=== PATIENT | female | born 1960 | race American Indian/Alaskan Native ===

== ENCOUNTER 2021-10-07 13:20 | Emergency (ER) | payer MEDICARE ==
[2021-10-07 13:27] VITALS: BP 134/73
--- NOTE | 2021-10-07 15:03 | Emergency Department Report ---
ED Psych HPI - General Chief Complaint: Psych Stated Complaint: OUT OF MEDS Time Seen by Provider: 10/07/21 14:03 Source: patient, EMS Mode of arrival: Ambulatory - History of Present Illness Initial Comments: 61-year-old female with a history of psychiatric disease (unable to tell us what her diagnosis is here) presents to the emergency department after being found walking in and out of traffic, today. Patient reports that someone was chasing her, and that is why she was in traffic. Patient also reports that she has been off of her injectable antipsychotic medications for several months, but has not been taking the pills that she was prescribed because "my daughter has it". Patient denies SI, HI, and hallucinations. Patient does appear mildly paranoid and not fully aware of her psychiatric disorder. Unknown alleviating or aggravating factors. - Related Data Allergies Allergy/AdvReac Type Severity Reaction Status Date / Time No Known Allergies Allergy Verified 10/07/21 13:27 ED Review of Systems ROS: Stated complaint: OUT OF MEDS Other details as noted in HPI Comment: Unobtainable due to pts medical conditions (Psychiatric disease and possible mental disability) Constitutional: denies: no symptoms reported, chills, fever Eyes: denies: eye pain, eye discharge, vision change ENT: denies: ear pain, throat pain Respiratory: denies: no symptoms reported, cough, shortness of breath, wheezing Cardiovascular: denies: chest pain, palpitations Endocrine: no symptoms reported Gastrointestinal: denies: abdominal pain, nausea, diarrhea Genitourinary: denies: urgency, dysuria, discharge Musculoskeletal: denies: back pain, joint swelling, arthralgia Skin: denies: rash, lesions Neurological: denies: headache, weakness, paresthesias Psychiatric: other (paranoia and out of medications). denies: anxiety, depression Hematological/Lymphatic: denies: easy bleeding, easy bruising ED Past Medical Hx - Past Medical History Hx Psychiatric Treatment: Yes ED Physical Exam - General Limitations: No Limitations General appearance: alert, in no apparent distress, obese - Head Head exam: Present: atraumatic, normocephalic - Eye Eye exam: Present: normal appearance - ENT ENT exam: Present: mucous membranes moist - Neck Neck exam: Present: normal inspection - Respiratory Respiratory exam: Present: normal lung sounds bilaterally, other (coughing). Absent: respiratory distress, wheezes - Cardiovascular Cardiovascular Exam: Present: regular rate, normal rhythm. Absent: systolic murmur, diastolic murmur, rubs, gallop - GI/Abdominal GI/Abdominal exam: Present: soft, normal bowel sounds - Extremities Exam Extremities exam: Present: normal inspection - Back Exam Back exam: Present: normal inspection - Neurological Exam Neurological exam: Present: alert, oriented X3 (Oriented to person, place, and time but not to situation), CN II-XII intact, normal gait, motor sensory deficit - Psychiatric Psychiatric exam: Present: normal mood, other (Mildly paranoid). Absent: depressed, agitated, anxious, homicidal ideation - Skin Skin exam: Present: warm, dry, intact, normal color. Absent: rash ED Course Vital Signs 10/07/21 13:25 Temperature 98.9 F Pulse Rate 93 H Respiratory 18 Rate Blood Pressure 134/73 [Left] O2 Sat by Pulse 99 Oximetry ED Medical Decision Making - Differential Diagnosis Acute psychosis, suicide attempts, malingering, mental disability Critical care attestation.: If time is entered above; I have spent that time in minutes in the direct care of this critically ill patient, excluding procedure time. ED Disposition Condition: Stable
[2021-10-07 16:04] LABS: Amphetamine Screen,Urine Negative; Benzodiazepines Screen,Urine Negative; Cannabinoid Screen,Urine Negative; Methadone Screen,Urine Negative; Opiate Screen,Urine Negative
[2021-10-07 16:07] LABS: Basophils % (Auto) 0.5 % (0.0-1.8); Eosinophils # (Auto) 0.2 K/mm3 (0.0-0.4); Eosinophils % (Auto) 3.2 % (0.0-4.3); Hematocrit 35.8 % (30.3-42.9); Hemoglobin 11.6 gm/dl (10.1-14.3); Lymphocytes # (Auto) 1.8 K/mm3 (1.2-5.4); Lymphocytes % (Auto) 28.8 % (13.4-35.0); Mean Corpuscular HGB Conc 32 % (30-34); Mean Corpuscular Volume 92 fl (79-97); Monocytes # (Auto) 0.6 K/mm3 (0.0-0.8); Monocytes % (Auto) 9.4 % (0.0-7.3); Platelet Count 246 K/mm3 (140-440); Red Blood Count 3.91 M/mm3 (3.65-5.03); Red Cell Distribution Width 13.6 % (13.2-15.2)
[2021-10-07 16:12] LABS: Bilirubin,Urine 1+ (Negative); Color,Urine Yellow (Yellow)
[2021-10-07 16:13] LABS: Blood,Urine Negative (Negative)
[2021-10-07 16:16] LABS: Cocaine Screen,Urine Positive
[2021-10-07 16:19] LABS: BUN/Creatinine Ratio 12; Blood Urea Nitrogen 13 mg/dL (7-17); Calcium 9.3 mg/dL (8.4-10.2); Hemolysis Index 4
[2021-10-07 17:08] LABS: RBC,Urine < 1.0 /HPF (0.0-6.0); WBC,Urine < 1.0 /HPF (0.0-6.0)
== END 2021-10-07 18:39 | disposition home or self-care (01) ==
LOC: ED 13:20
DX: F23 Brief psychotic disorder (principal); R45.851 Suicidal ideations; Z20.822 Contact with and (suspected) exposure to COVID-19; Z76.5 Malingerer [conscious simulation]; F81.9 Developmental disorder of scholastic skills, unspecified; Z79.899 Other long term (current) drug therapy
CPT/HCPCS: 80048; 80307; 81001; 85025; 99283; U0003; 80320; G0480

== ENCOUNTER 2021-10-07 17:09 | Inpatient (IN) | payer MEDICARE ==
--- NOTE | 2021-10-08 08:01 | History and Physical Report ---
GP History & Physical - History of Present Illness Date of admission: 10/07/21 Date of Examination: 10/08/21 Reason for Admission: Danger to self, Danger to others, Failure of Outpatient Treatment History of Present Illness: The patient is a 61 year old female with history of schizophrenia who is admitted for stabilization. Per note, patient was found going in and out of traffic. The patient was seen today. She is calm and oriented to self. She reports that " they took me off the street, they said they're going to take me to the doctor, I have a big open wound down there I don't know where I got it from." The patient presents with disorganized thoughts. Per note, the patient was on Abilify Maintena injection; she is unable to state when she last took med. The patient is followed by [facility]. She tested positive for Cocaine. PAST PSYCHIATRIC HISTORY: PAST MEDICAL HISTORY: Family Psychiatric History None reported or documented SOCIAL HISTORY REVIEW OF SYSTEMS ROS: Unable to assess MENTAL STATUS General Appearance and Behavior: age appropriate, good eye contact, cooperative, and calm Cooperation: Cooperative Psychomotor Behavior: within normal limits Mood: confused Affect and affective range: Congruent with stated mood Thought Process: circumstantial Thought Content: Confused Speech: Normal volume and Regular rate and rhythm Suicidal Ideation:unable to assess Homicidal Ideation: Denies HI Hallucinations:unable to assess Delusions: None elicited Impulse Control: Limited Insight and Judgment: Limited Memory: Limited Attention: distracted Orientation: alert and oriented Diagnoses: Schizophrenia Disorder Treatment Plan Start Abilify 15mg po daily- Recommend Abilify maintena Inj. Start Trazodone 50mg po QHS Patient will be admitted for inpatient psychiatric evaluation, medication adjustment and close monitoring The patient's behavior, mood, sleep and appetite will be closely monitored. Patient will be enrolled in individual and group therapeutic sessions and encouraged to attend. Patient will be provided with a safe and structured environment. Patient's physical health needs will be addressed by the Hospitalist. Hospitalist Consulted Labs including CBC, CMP, Lipid profile and Hemoglobin A1C ordered Social Assessment will be completed and the [facility] Magistrate will work with patient and family to ensure a suitable and safe disposition Medication adjustment will be made as clinically indicated Usual Wellness Religious/Preservation: - Start Trazodone 50 mg po QHS PRN - Start [place]-3 for brain health, reduce impulsivity, and as adjunctive treatment for mood disorder, continue upon discharge given overall benefits. The patient agreed on the treatment plan, understood the risk, benefit, alternative treatment, potential consequence of no treatment, and gave informed consent. Legal Status: Involuntary Reaction to Hospitalization: Accepting Medications and Allergies Allergies Allergy/AdvReac Type Severity Reaction Status Date / Time No Known Allergies Allergy Verified 10/07/21 13:27 Home Medications Medication Instructions Recorded Confirmed Last Taken Type Unobtainable 10/08/21 10/08/21 Unknown History Results - Results Labs/Vitals: Laboratory Last Values POC Glucose 117 mg/dL (70-105) H 10/07/21 23:22 Last Vital Signs Temp 98.9 F 10/07/21 23:20 Pulse 70 10/07/21 23:20 Resp 18 10/07/21 23:20 BP 120/54 10/07/21 23:20 Pulse Ox 98 10/07/21 23:20 Physical Examination - Constitutional Vitals: Vital Signs Temp Pulse Resp BP Pulse Ox 98.9 F 70 18 120/54 98 10/07/21 23:20 10/07/21 23:20 10/07/21 23:20 10/07/21 23:20 10/07/21 23:20 Temperature -Last 24 Hours Temperature 98.9 F Mental Status Exam - Vital signs Last Vital Signs Temp 98.9 F 10/07/21 23:20 Pulse 70 10/07/21 23:20 Resp 18 10/07/21 23:20 BP 120/54 10/07/21 23:20 Pulse Ox 98 10/07/21 23:20 Physician Certification - Certification Statement Physician Certification Statement: This is an acknowledgement statement that PELON PALACIO is a 61 year old F who requires inpatient psychiatric admission for treatment which could reasonably be expected to improve the patient's condition for Estimated period of time patient will need to remain in the hospital: [ ] Plan for post-hospital care: [ ]
[2021-10-08] MEDS: ARIPiprazole 15 MG TAB PO SCH (10:22)
--- NOTE | 2021-10-08 11:29 | Consultation ---
History of Present Illness - Reason for Consult Consult date: 10/08/21 Medical consult/medical management Requesting physician: RAFI TRIPATHI - History of Present Illness 61-year-old female patient with significant past medical history of major depression was found walking on the street in the traffic with her hallucinations of someone chasing her. Patient ran out of antipsychotic medications and was not on them for many months. Patient was admitted to [facility] with a history of danger to self, danger to others, and failure of outpatient treatment patient has history of schizophrenia noncompliant with medications. Hospitalist service was requested for medical consult Patient does not have any history of medical disease per records and patient denies diabetes, hypertension or coronary artery disease. Time of my evaluation patient is loud confused at times sometimes responds appropriately. Patient has history of tobacco use per medical records. Patient unable to give the history, family not available Limited history information obtained from the medical records Patient reports that someone is chasing him, No history suggestive of diabetes mellitus, hypertension, coronary artery disease No history of nausea vomiting abdominal pain no history of paralysis, weakness and Past History Past Medical History: other (Schizophrenia). denies: CAD, hypertension, hyperlipidemia Past Surgical History: No surgical history Social history: smoking. denies: alcohol abuse, prescription drug abuse Family history: no significant family history Medications and Allergies Allergies Allergy/AdvReac Type Severity Reaction Status Date / Time No Known Allergies Allergy Verified 10/07/21 13:27 Home Medications Medication Instructions Recorded Confirmed Last Taken Type Unobtainable 10/08/21 10/08/21 Unknown History Active Meds: Active Medications Aripiprazole (Aripiprazole 15 Mg Tab) 15 mg PO QDAY [facility] Last Admin: 10/08/21 10:22 Dose: 15 mg Nystatin (Nystatin Cream 15 Gm Tube) 1 applic TP TID ROBERTO Trazodone HCl (Trazodone 50 Mg Tab) 50 mg PO QHS [facility] Review of Systems ROS unobtainable: due to mental status Exam - Constitutional Vitals: Temp Pulse Resp BP Pulse Ox 98.9 F 70 18 120/54 98 10/07/21 23:20 10/07/21 23:20 10/07/21 23:20 10/07/21 23:20 10/07/21 23:20 General appearance: Present: no acute distress, well-nourished, obese - EENT Eyes: Present: PERRL, EOM intact - Neck Neck: Present: supple, normal ROM - Respiratory Respiratory effort: normal Respiratory: bilateral: diminished, negative: rales, rhonchi, wheezing - Cardiovascular Rhythm: regular Heart Sounds: Present: S1 & S2 - Extremities Extremities: no ischemia, No edema - Abdominal General gastrointestinal: Present: soft, non-tender, non-distended - Integumentary Integumentary: Present: clear, warm - Musculoskeletal Musculoskeletal: strength equal bilaterally - Psychiatric Psychiatric: agitated, other - Neurologic Neurologic: moves all extremities Results - Labs CBC & Chem 7: 10/07/21 13:40 10/07/21 13:40 Labs: Abnormal lab results 10/07/21 Range/Units 23:22 POC Glucose 117 H (70-105) mg/dL Assessment and Plan --Schizophrenia; management per psych --Ongoing tobacco use; Nicotine patch, smoking cessation counseling when patient is able to understand Supportive care --Cocaine abuse; strongly advised to quit We will also advised the family the importance of compliance with medications diet and follow-up visits and she is more receptive --DVT prophylaxis; SCDs while resting Ambulate as tolerated --Obesity; BMI 31.1 Advised diet modification, exercise as tolerated and weight reduction --Full CODE STATUS Closely monitor the patient and adjust management as needed Plan of care reviewed with the patient and her nurse Thank you for this consultation We will follow the patient along with you
[2021-10-08 13:45] LABS: Basophils % (Auto) 0.8 % (0.0-1.8); Eosinophils # (Auto) 0.1 K/mm3 (0.0-0.4); Eosinophils % (Auto) 2.3 % (0.0-4.3); Hematocrit 34.9 % (30.3-42.9); Hemoglobin 11.5 gm/dl (10.1-14.3); Lymphocytes # (Auto) 1.7 K/mm3 (1.2-5.4); Lymphocytes % (Auto) 31.4 % (13.4-35.0); Mean Corpuscular HGB Conc 33 % (30-34); Mean Corpuscular Volume 92 fl (79-97); Monocytes # (Auto) 0.4 K/mm3 (0.0-0.8); Monocytes % (Auto) 6.6 % (0.0-7.3); Platelet Count 240 K/mm3 (140-440); Red Blood Count 3.78 M/mm3 (3.65-5.03); Red Cell Distribution Width 13.6 % (13.2-15.2)
[2021-10-08 14:10] LABS: Alanine Aminotransferase 17 units/L (7-56); Albumin 3.4 g/dL (3.9-5); BUN/Creatinine Ratio 12; Blood Urea Nitrogen 11 mg/dL (7-17); Chol/HDL Ratio 4.74 %; HDL Cholesterol 31 mg/dL (40-59); Hemolysis Index 4; LDL Cholesterol,Direct 94 mg/dL (50-130)
[2021-10-08] MEDS: NYSTATIN CREAM 15 GM TUBE TP SCH ×2 (14:52→20:13)
[2021-10-08] MEDS: traZODone 50 MG TAB PO SCH (21:37)
[2021-10-09] MEDS: ARIPiprazole 15 MG TAB PO SCH (10:28)
[2021-10-09] MEDS: NYSTATIN CREAM 15 GM TUBE TP SCH ×3 (10:29→20:06)
--- NOTE | 2021-10-09 10:36 | Progress Note ---
Subjective Date of service: 10/09/21 Principal diagnosis: schizophrenia Subjective Comment: The patient was seen today. She endorses hearing voices telling her "uh uh. uh uh." The patient is louse, and child-like. She denies SI/HI. REVIEW OF SYSTEMS Constitutional: Negative for weight loss ENT: Negative for stridor Respiratory: Negative for cough or hemoptysis All other systems reviewed and are negative MENTAL STATUS General Appearance and Behavior: age appropriate, good eye contact, cooperative, and calm Cooperation: Cooperative Psychomotor Behavior: within normal limits Mood: confused Affect and affective range: Congruent with stated mood Thought Process: circumstantial Thought Content: Confused Speech: Normal volume and Regular rate and rhythm Suicidal Ideation:unable to assess Homicidal Ideation: Denies HI Hallucinations:unable to assess Delusions: None elicited Impulse Control: Limited Insight and Judgment: Limited Memory: Limited Attention: distracted Orientation: alert and oriented Diagnoses: Schizophrenia Disorder Treatment Plan Patient will be admitted for inpatient psychiatric evaluation, medication adjustment and close monitoring The patient's behavior, mood, sleep and appetite will be closely monitored. Patient will be enrolled in individual and group therapeutic sessions and encouraged to attend. Patient will be provided with a safe and structured environment. Patient's physical health needs will be addressed by the Hospitalist. Hospitalist Consulted Labs including CBC, CMP, Lipid profile and Hemoglobin A1C ordered Social Assessment will be completed and the [facility] will work with patient and family to ensure a suitable and safe disposition Medication adjustment will be made as clinically indicated Increase Abilify 20mg po daily Usual Wellness Hoahaoism/Preservation: - Start Trazodone 50 mg po QHS PRN - Start [place]-3 for brain health, reduce impulsivity, and as adjunctive treatment for mood disorder, continue upon discharge given overall benefits. The patient agreed on the treatment plan, understood the risk, benefit, alternative treatment, potential consequence of no treatment, and gave informed consent. Medications and Allergies Allergies Allergy/AdvReac Type Severity Reaction Status Date / Time No Known Allergies Allergy Verified 10/07/21 13:27 Home Medications Medication Instructions Recorded Confirmed Last Taken Type Unobtainable 10/08/21 10/08/21 Unknown History Active Meds: Active Medications Aripiprazole (Aripiprazole 15 Mg Tab) 15 mg PO QDAY [facility] Last Admin: 10/09/21 10:28 Dose: 15 mg Nystatin (Nystatin Cream 15 Gm Tube) 1 applic TP TID [facility] Last Admin: 10/09/21 10:29 Dose: 1 applic Trazodone HCl (Trazodone 50 Mg Tab) 50 mg PO QHS [facility] Last Admin: 10/08/21 21:37 Dose: 50 mg Results - Results Labs/Vitals: Laboratory Last Values WBC 5.5 K/mm3 (4.5-11.0) 10/07/21 13:40 RBC 3.78 M/mm3 (3.65-5.03) 10/07/21 13:40 Hgb 11.5 gm/dl (10.1-14.3) 10/07/21 13:40 Hct 34.9 % (30.3-42.9) 10/07/21 13:40 MCV 92 fl (79-97) 10/07/21 13:40 MCH 31 pg (28-32) 10/07/21 13:40 MCHC 33 % (30-34) 10/07/21 13:40 RDW 13.6 % (13.2-15.2) 10/07/21 13:40 Plt Count 240 K/mm3 (140-440) 10/07/21 13:40 Lymph % (Auto) 31.4 % (13.4-35.0) 10/07/21 13:40 [place] % (Auto) 6.6 % (0.0-7.3) 10/07/21 13:40 Eos % (Auto) 2.3 % (0.0-4.3) 10/07/21 13:40 Baso % (Auto) 0.8 % (0.0-1.8) 10/07/21 13:40 Lymph # (Auto) 1.7 K/mm3 (1.2-5.4) 10/07/21 13:40 [place] # (Auto) 0.4 K/mm3 (0.0-0.8) 10/07/21 13:40 Eos # (Auto) 0.1 K/mm3 (0.0-0.4) 10/07/21 13:40 Baso # (Auto) 0.0 K/mm3 (0.0-0.1) 10/07/21 13:40 Seg Neutrophils % 58.9 % (40.0-70.0) 10/07/21 13:40 Seg Neutrophils # 3.2 K/mm3 (1.8-7.7) 10/07/21 13:40 Sodium 145 mmol/L (137-145) 10/07/21 13:40 Potassium 3.9 mmol/L (3.6-5.0) 10/07/21 13:40 Chloride 107.4 mmol/L (98-107) H 10/07/21 13:40 Carbon Dioxide 27 mmol/L (22-30) 10/07/21 13:40 Anion Gap 15 mmol/L 10/07/21 13:40 BUN 11 mg/dL (7-17) 10/07/21 13:40 Creatinine 0.9 mg/dL (0.6-1.2) 10/07/21 13:40 Estimated GFR > 60 ml/min 10/07/21 13:40 BUN/Creatinine Ratio 12 % 10/07/21 13:40 Glucose 112 mg/dL (65-100) H 10/07/21 13:40 POC Glucose 117 mg/dL (70-105) H 10/07/21 23:22 Hemoglobin A1c 5.6 % (4-6) 10/07/21 13:40 Calcium 9.0 mg/dL (8.4-10.2) 10/07/21 13:40 Total Bilirubin 0.20 mg/dL (0.1-1.2) 10/07/21 13:40 AST 14 units/L (5-40) 10/07/21 13:40 ALT 17 units/L (7-56) 10/07/21 13:40 Alkaline Phosphatase 96 units/L (35-129) 10/07/21 13:40 Total Protein 6.1 g/dL (6.3-8.2) L 10/07/21 13:40 Albumin 3.4 g/dL (3.9-5) L 10/07/21 13:40 Albumin/Globulin Ratio 1.3 % 10/07/21 13:40 Triglycerides 120 mg/dL (2-149) 10/07/21 13:40 Cholesterol 147 mg/dL (50-199) 10/07/21 13:40 LDL Cholesterol Direct 94 mg/dL (50-130) 10/07/21 13:40 HDL Cholesterol 31 mg/dL (40-59) L 10/07/21 13:40 Cholesterol/HDL Ratio 4.74 % 10/07/21 13:40 TSH 0.817 mlU/mL (0.270-4.200) 10/07/21 13:40 Last Vital Signs Temp 98.6 F 10/08/21 20:00 Pulse 85 10/08/21 20:00 Resp 16 10/08/21 20:00 BP 110/53 10/08/21 20:00 Pulse Ox 95 10/08/21 20:00
--- NOTE | 2021-10-09 15:55 | Progress Note ---
Assessment and Plan Assessment and plan: Assessment and Plan --Ongoing tobacco use; Nicotine patch, smoking cessation counseling when patient is able to understand Supportive care --Cocaine abuse; strongly advised to quit Patient advised importance of compliance with medications diet and follow-up visits and she is more receptive --DVT prophylaxis; SCDs while resting Ambulate as tolerated --Mild protein calorie malnutrition present on admission Hypoalbuminemia, Nutrition supplements and supportive care --Schizophrenia; management per psych --Obesity; BMI 31.1 Advised diet modification, exercise as tolerated and weight reduction --Full CODE STATUS Closely monitor the patient and adjust management as needed Plan of care reviewed with the patient and her nurse Thank you for this consultation We will follow the patient along with you History Interval history: I have seen and examined the patient in the [facility] psych unit this morning Patient's chart and medications reviewed Patient was in the day room very cheerful and loud No new events reported by the nursing staff Responding to simple questions appropriately Vital signs noted Hospitalist Physical - Constitutional Vitals: Temp Pulse Resp BP Pulse Ox 97.7 F 85 16 137/73 95 10/09/21 08:05 10/08/21 20:00 10/09/21 08:05 10/09/21 08:05 10/08/21 20:00 General appearance: Present: no acute distress, obese, other (Cheerful) - EENT Eyes: Present: PERRL, EOM intact - Neck Neck: Present: supple, normal ROM - Respiratory Respiratory effort: normal Respiratory: bilateral: diminished, negative: rales, rhonchi, wheezing - Cardiovascular Rhythm: regular Heart Sounds: Present: S1 & S2 - Extremities Extremities: no ischemia, No edema - Abdominal General gastrointestinal: soft, non-tender, non-distended, normal bowel sounds - Psychiatric Psychiatric: cooperative, other (Obeying verbal commands) - Neurologic Neurologic: moves all extremities Results - Labs CBC & Chem 7: 10/07/21 13:40 10/07/21 13:40 Labs: Laboratory Last Values WBC 5.5 K/mm3 (4.5-11.0) 10/07/21 13:40 RBC 3.78 M/mm3 (3.65-5.03) 10/07/21 13:40 Hgb 11.5 gm/dl (10.1-14.3) 10/07/21 13:40 Hct 34.9 % (30.3-42.9) 10/07/21 13:40 MCV 92 fl (79-97) 10/07/21 13:40 MCH 31 pg (28-32) 10/07/21 13:40 MCHC 33 % (30-34) 10/07/21 13:40 RDW 13.6 % (13.2-15.2) 10/07/21 13:40 Plt Count 240 K/mm3 (140-440) 10/07/21 13:40 Lymph % (Auto) 31.4 % (13.4-35.0) 10/07/21 13:40 [place] % (Auto) 6.6 % (0.0-7.3) 10/07/21 13:40 Eos % (Auto) 2.3 % (0.0-4.3) 10/07/21 13:40 Baso % (Auto) 0.8 % (0.0-1.8) 10/07/21 13:40 Lymph # (Auto) 1.7 K/mm3 (1.2-5.4) 10/07/21 13:40 [place] # (Auto) 0.4 K/mm3 (0.0-0.8) 10/07/21 13:40 Eos # (Auto) 0.1 K/mm3 (0.0-0.4) 10/07/21 13:40 Baso # (Auto) 0.0 K/mm3 (0.0-0.1) 10/07/21 13:40 Seg Neutrophils % 58.9 % (40.0-70.0) 10/07/21 13:40 Seg Neutrophils # 3.2 K/mm3 (1.8-7.7) 10/07/21 13:40 Sodium 145 mmol/L (137-145) 10/07/21 13:40 Potassium 3.9 mmol/L (3.6-5.0) 10/07/21 13:40 Chloride 107.4 mmol/L (98-107) H 10/07/21 13:40 Carbon Dioxide 27 mmol/L (22-30) 10/07/21 13:40 Anion Gap 15 mmol/L 10/07/21 13:40 BUN 11 mg/dL (7-17) 10/07/21 13:40 Creatinine 0.9 mg/dL (0.6-1.2) 10/07/21 13:40 Estimated GFR > 60 ml/min 10/07/21 13:40 BUN/Creatinine Ratio 12 % 10/07/21 13:40 Glucose 112 mg/dL (65-100) H 10/07/21 13:40 POC Glucose 117 mg/dL (70-105) H 10/07/21 23:22 Hemoglobin A1c 5.6 % (4-6) 10/07/21 13:40 Calcium 9.0 mg/dL (8.4-10.2) 10/07/21 13:40 Total Bilirubin 0.20 mg/dL (0.1-1.2) 10/07/21 13:40 AST 14 units/L (5-40) 10/07/21 13:40 ALT 17 units/L (7-56) 10/07/21 13:40 Alkaline Phosphatase 96 units/L (35-129) 10/07/21 13:40 Total Protein 6.1 g/dL (6.3-8.2) L 10/07/21 13:40 Albumin 3.4 g/dL (3.9-5) L 10/07/21 13:40 Albumin/Globulin Ratio 1.3 % 10/07/21 13:40 Triglycerides 120 mg/dL (2-149) 10/07/21 13:40 Cholesterol 147 mg/dL (50-199) 10/07/21 13:40 LDL Cholesterol Direct 94 mg/dL (50-130) 10/07/21 13:40 HDL Cholesterol 31 mg/dL (40-59) L 10/07/21 13:40 Cholesterol/HDL Ratio 4.74 % 10/07/21 13:40 TSH 0.817 mlU/mL (0.270-4.200) 10/07/21 13:40 Maldonado/IV: Voiding Method Toilet Active Medications - Current Medications Current Medications: Generic Name Dose Route Start Last Admin Trade Name Freq PRN Reason Stop Dose Admin Aripiprazole 20 mg 10/10/21 11:00 Aripiprazole 10 Mg Tab PO QDAY ROBERTO Nystatin 1 applic 10/08/21 14:00 10/09/21 14:12 Nystatin Cream 15 Gm Tube TP Not Given TID ROBERTO Trazodone HCl 50 mg 10/08/21 22:00 10/08/21 21:37 Trazodone 50 Mg Tab PO 50 mg QHS ROBERTO Administration
[2021-10-09] MEDS: traZODone 50 MG TAB PO SCH (21:24)
--- NOTE | 2021-10-10 08:42 | Progress Note ---
Subjective Date of service: 10/10/21 Principal diagnosis: schizophrenia Subjective Comment: The patient was seen today. She is loud, but cooperative and pleasant. The patient says she feels fine and she slept good. She says asking if I know when she'll be going home. She denies SI/HI or hallucinations today. REVIEW OF SYSTEMS Constitutional: Negative for weight loss ENT: Negative for stridor Respiratory: Negative for cough or hemoptysis All other systems reviewed and are negative MENTAL STATUS General Appearance and Behavior: age appropriate, good eye contact, cooperative, and calm Cooperation: Cooperative Psychomotor Behavior: within normal limits Mood: fine Affect and affective range: Congruent with stated mood Thought Process: circumstantial Thought Content: goal directed Speech: Normal volume and Regular rate and rhythm Suicidal Ideation: Denies Homicidal Ideation: Denies HI Hallucinations: denies Delusions: None elicited Impulse Control: Limited Insight and Judgment: Limited Memory: Limited Attention: distracted Orientation: alert and oriented Diagnoses: Schizophrenia Disorder Treatment Plan Patient will be admitted for inpatient psychiatric evaluation, medication adjustment and close monitoring The patient's behavior, mood, sleep and appetite will be closely monitored. Patient will be enrolled in individual and group therapeutic sessions and encouraged to attend. Patient will be provided with a safe and structured environment. Patient's physical health needs will be addressed by the Hospitalist. Hospitalist Consulted Labs including CBC, CMP, Lipid profile and Hemoglobin A1C ordered Social Assessment will be completed and the Conservation Enforcement Officer will work with patient and family to ensure a suitable and safe disposition Medication adjustment will be made as clinically indicated Increase Abilify 20mg po daily yesterday No changes today Usual Wellness Sikh/Preservation: - Start Trazodone 50 mg po QHS PRN - Start [place]-3 for brain health, reduce impulsivity, and as adjunctive treatment for mood disorder, continue upon discharge given overall benefits. The patient agreed on the treatment plan, understood the risk, benefit, alternative treatment, potential consequence of no treatment, and gave informed consent. Medications and Allergies Allergies Allergy/AdvReac Type Severity Reaction Status Date / Time No Known Allergies Allergy Verified 10/07/21 13:27 Home Medications Medication Instructions Recorded Confirmed Last Taken Type Unobtainable 10/08/21 10/08/21 Unknown History Active Meds: Active Medications Aripiprazole (Aripiprazole 10 Mg Tab) 20 mg PO QDAY ROBERTO Nystatin (Nystatin Cream 15 Gm Tube) 1 applic TP TID ORBERTO Last Admin: 10/09/21 20:06 Dose: 1 applic Trazodone HCl (Trazodone 50 Mg Tab) 50 mg PO QHS [facility] Last Admin: 10/09/21 21:24 Dose: 50 mg Results - Results Labs/Vitals: Laboratory Last Values WBC 5.5 K/mm3 (4.5-11.0) 10/07/21 13:40 RBC 3.78 M/mm3 (3.65-5.03) 10/07/21 13:40 Hgb 11.5 gm/dl (10.1-14.3) 10/07/21 13:40 Hct 34.9 % (30.3-42.9) 10/07/21 13:40 MCV 92 fl (79-97) 10/07/21 13:40 MCH 31 pg (28-32) 10/07/21 13:40 MCHC 33 % (30-34) 10/07/21 13:40 RDW 13.6 % (13.2-15.2) 10/07/21 13:40 Plt Count 240 K/mm3 (140-440) 10/07/21 13:40 Lymph % (Auto) 31.4 % (13.4-35.0) 10/07/21 13:40 [place] % (Auto) 6.6 % (0.0-7.3) 10/07/21 13:40 Eos % (Auto) 2.3 % (0.0-4.3) 10/07/21 13:40 Baso % (Auto) 0.8 % (0.0-1.8) 10/07/21 13:40 Lymph # (Auto) 1.7 K/mm3 (1.2-5.4) 10/07/21 13:40 [place] # (Auto) 0.4 K/mm3 (0.0-0.8) 10/07/21 13:40 Eos # (Auto) 0.1 K/mm3 (0.0-0.4) 10/07/21 13:40 Baso # (Auto) 0.0 K/mm3 (0.0-0.1) 10/07/21 13:40 Seg Neutrophils % 58.9 % (40.0-70.0) 10/07/21 13:40 Seg Neutrophils # 3.2 K/mm3 (1.8-7.7) 10/07/21 13:40 Sodium 145 mmol/L (137-145) 10/07/21 13:40 Potassium 3.9 mmol/L (3.6-5.0) 10/07/21 13:40 Chloride 107.4 mmol/L (98-107) H 10/07/21 13:40 Carbon Dioxide 27 mmol/L (22-30) 10/07/21 13:40 Anion Gap 15 mmol/L 10/07/21 13:40 BUN 11 mg/dL (7-17) 10/07/21 13:40 Creatinine 0.9 mg/dL (0.6-1.2) 10/07/21 13:40 Estimated GFR > 60 ml/min 10/07/21 13:40 BUN/Creatinine Ratio 12 % 10/07/21 13:40 Glucose 112 mg/dL (65-100) H 10/07/21 13:40 POC Glucose 117 mg/dL (70-105) H 10/07/21 23:22 Hemoglobin A1c 5.6 % (4-6) 10/07/21 13:40 Calcium 9.0 mg/dL (8.4-10.2) 10/07/21 13:40 Total Bilirubin 0.20 mg/dL (0.1-1.2) 10/07/21 13:40 AST 14 units/L (5-40) 10/07/21 13:40 ALT 17 units/L (7-56) 10/07/21 13:40 Alkaline Phosphatase 96 units/L (35-129) 10/07/21 13:40 Total Protein 6.1 g/dL (6.3-8.2) L 10/07/21 13:40 Albumin 3.4 g/dL (3.9-5) L 10/07/21 13:40 Albumin/Globulin Ratio 1.3 % 10/07/21 13:40 Triglycerides 120 mg/dL (2-149) 10/07/21 13:40 Cholesterol 147 mg/dL (50-199) 10/07/21 13:40 LDL Cholesterol Direct 94 mg/dL (50-130) 10/07/21 13:40 HDL Cholesterol 31 mg/dL (40-59) L 10/07/21 13:40 Cholesterol/HDL Ratio 4.74 % 10/07/21 13:40 TSH 0.817 mlU/mL (0.270-4.200) 10/07/21 13:40 Last Vital Signs Temp 97.4 F L 10/10/21 07:48 Pulse 70 10/10/21 07:48 Resp 18 10/10/21 07:48 BP 141/76 10/10/21 07:48 Pulse Ox 97 10/09/21 20:26
[2021-10-10] MEDS: ARIPiprazole 10 MG TAB PO SCH (10:42)
[2021-10-10] MEDS: NYSTATIN CREAM 15 GM TUBE TP SCH ×3 (10:44→20:56)
--- NOTE | 2021-10-10 17:08 | Progress Note ---
Assessment and Plan Assessment and plan: --Ongoing tobacco use; Nicotine patch, smoking cessation counseling when patient is able to understand Supportive care --Cocaine abuse; strongly advised to quit Patient advised importance of compliance with medications diet and follow-up visits and she is more receptive --Mild protein calorie malnutrition present on admission Hypoalbuminemia, Nutrition supplements and supportive care --Obesity; BMI 31.1 Advised diet modification, exercise as tolerated and weight reduction --Full CODE STATUS --DVT prophylaxis; SCDs while resting Ambulate as tolerated --Schizophrenia; management per psych Closely monitor the patient and adjust management as needed Plan of care reviewed with the patient and her nurse Thank you for this consultation We will follow the patient along with you Call us with questions History Interval history: I have seen and examined the patient at the bedside Patient's chart and medications reviewed Patient was lying on the bed in her room today Anxious to go home No new overnight events reported by nursing Vital signs noted Hospitalist Physical - Constitutional Vitals: Temp Pulse Resp BP Pulse Ox 97.4 F L 70 18 141/76 97 10/10/21 07:48 10/10/21 07:48 10/10/21 07:48 10/10/21 07:48 10/09/21 20:26 General appearance: Present: no acute distress, obese, other (Cheerful) - EENT Eyes: Present: PERRL, EOM intact - Neck Neck: Present: supple, normal ROM - Respiratory Respiratory effort: normal Respiratory: bilateral: diminished, negative: rales, rhonchi, wheezing - Cardiovascular Rhythm: regular Heart Sounds: Present: S1 & S2 - Extremities Extremities: no ischemia, No edema - Abdominal General gastrointestinal: soft, non-tender, non-distended, normal bowel sounds - Integumentary Integumentary: Present: clear, warm - Psychiatric Psychiatric: appropriate mood/affect, cooperative - Neurologic Neurologic: CNII-XII intact, moves all extremities Results - Labs CBC & Chem 7: 10/07/21 13:40 10/07/21 13:40 Labs: Laboratory Last Values WBC 5.5 K/mm3 (4.5-11.0) 10/07/21 13:40 RBC 3.78 M/mm3 (3.65-5.03) 10/07/21 13:40 Hgb 11.5 gm/dl (10.1-14.3) 10/07/21 13:40 Hct 34.9 % (30.3-42.9) 10/07/21 13:40 MCV 92 fl (79-97) 10/07/21 13:40 MCH 31 pg (28-32) 10/07/21 13:40 MCHC 33 % (30-34) 10/07/21 13:40 RDW 13.6 % (13.2-15.2) 10/07/21 13:40 Plt Count 240 K/mm3 (140-440) 10/07/21 13:40 Lymph % (Auto) 31.4 % (13.4-35.0) 10/07/21 13:40 [place] % (Auto) 6.6 % (0.0-7.3) 10/07/21 13:40 Eos % (Auto) 2.3 % (0.0-4.3) 10/07/21 13:40 Baso % (Auto) 0.8 % (0.0-1.8) 10/07/21 13:40 Lymph # (Auto) 1.7 K/mm3 (1.2-5.4) 10/07/21 13:40 [place] # (Auto) 0.4 K/mm3 (0.0-0.8) 10/07/21 13:40 Eos # (Auto) 0.1 K/mm3 (0.0-0.4) 10/07/21 13:40 Baso # (Auto) 0.0 K/mm3 (0.0-0.1) 10/07/21 13:40 Seg Neutrophils % 58.9 % (40.0-70.0) 10/07/21 13:40 Seg Neutrophils # 3.2 K/mm3 (1.8-7.7) 10/07/21 13:40 Sodium 145 mmol/L (137-145) 10/07/21 13:40 Potassium 3.9 mmol/L (3.6-5.0) 10/07/21 13:40 Chloride 107.4 mmol/L (98-107) H 10/07/21 13:40 Carbon Dioxide 27 mmol/L (22-30) 10/07/21 13:40 Anion Gap 15 mmol/L 10/07/21 13:40 BUN 11 mg/dL (7-17) 10/07/21 13:40 Creatinine 0.9 mg/dL (0.6-1.2) 10/07/21 13:40 Estimated GFR > 60 ml/min 10/07/21 13:40 BUN/Creatinine Ratio 12 % 10/07/21 13:40 Glucose 112 mg/dL (65-100) H 10/07/21 13:40 POC Glucose 117 mg/dL (70-105) H 10/07/21 23:22 Hemoglobin A1c 5.6 % (4-6) 10/07/21 13:40 Calcium 9.0 mg/dL (8.4-10.2) 10/07/21 13:40 Total Bilirubin 0.20 mg/dL (0.1-1.2) 10/07/21 13:40 AST 14 units/L (5-40) 10/07/21 13:40 ALT 17 units/L (7-56) 10/07/21 13:40 Alkaline Phosphatase 96 units/L (35-129) 10/07/21 13:40 Total Protein 6.1 g/dL (6.3-8.2) L 10/07/21 13:40 Albumin 3.4 g/dL (3.9-5) L 10/07/21 13:40 Albumin/Globulin Ratio 1.3 % 10/07/21 13:40 Triglycerides 120 mg/dL (2-149) 10/07/21 13:40 Cholesterol 147 mg/dL (50-199) 10/07/21 13:40 LDL Cholesterol Direct 94 mg/dL (50-130) 10/07/21 13:40 HDL Cholesterol 31 mg/dL (40-59) L 10/07/21 13:40 Cholesterol/HDL Ratio 4.74 % 10/07/21 13:40 TSH 0.817 mlU/mL (0.270-4.200) 10/07/21 13:40 Maldonado/IV: Voiding Method Toilet Active Medications - Current Medications Current Medications: Generic Name Dose Route Start Last Admin Trade Name Freq PRN Reason Stop Dose Admin Aripiprazole 20 mg 10/10/21 11:00 10/10/21 10:42 Aripiprazole 10 Mg Tab PO 20 mg QDAY ROBERTO Administration Nystatin 1 applic 10/08/21 14:00 10/10/21 10:44 Nystatin Cream 15 Gm Tube TP 1 applic TID ROBERTO Administration Trazodone HCl 50 mg 10/08/21 22:00 10/09/21 21:24 Trazodone 50 Mg Tab PO 50 mg QHS ROBERTO Administration
[2021-10-10] MEDS: traZODone 50 MG TAB PO SCH (21:37)
[2021-10-11] MEDS: NYSTATIN CREAM 15 GM TUBE TP SCH ×3 (08:58→20:17)
[2021-10-11] MEDS: ARIPiprazole 10 MG TAB PO SCH (09:37)
--- NOTE | 2021-10-11 12:44 | Progress Note ---
Subjective Date of service: 10/11/21 Principal diagnosis: schizophrenia Subjective Comment: The patient was seen today. She is lying down. She is calm and cooperative. She denie SI/HI or hallucinations of any kind. REVIEW OF SYSTEMS Constitutional: Negative for weight loss ENT: Negative for stridor Respiratory: Negative for cough or hemoptysis All other systems reviewed and are negative MENTAL STATUS General Appearance and Behavior: age appropriate, good eye contact, cooperative, and calm Cooperation: Cooperative Psychomotor Behavior: within normal limits Mood: fine Affect and affective range: Congruent with stated mood Thought Process: circumstantial Thought Content: goal directed Speech: Normal volume and Regular rate and rhythm Suicidal Ideation: Denies Homicidal Ideation: Denies HI Hallucinations: denies Delusions: None elicited Impulse Control: Limited Insight and Judgment: Limited Memory: Limited Attention: distracted Orientation: alert and oriented Diagnoses: Schizophrenia Disorder Treatment Plan Patient will be admitted for inpatient psychiatric evaluation, medication adjustment and close monitoring The patient's behavior, mood, sleep and appetite will be closely monitored. Patient will be enrolled in individual and group therapeutic sessions and encouraged to attend. Patient will be provided with a safe and structured environment. Patient's physical health needs will be addressed by the Hospitalist. Hospitalist Consulted Labs including CBC, CMP, Lipid profile and Hemoglobin A1C ordered Social Assessment will be completed and the [employer] will work with patient and family to ensure a suitable and safe disposition Medication adjustment will be made as clinically indicated Abilify 20mg po daily Usual Wellness Pentecostal/Preservation: - Start Trazodone 50 mg po QHS PRN - Start [place]-3 for brain health, reduce impulsivity, and as adjunctive treatment for mood disorder, continue upon discharge given overall benefits. The patient agreed on the treatment plan, understood the risk, benefit, alternative treatment, potential consequence of no treatment, and gave informed consent. Medications and Allergies Allergies Allergy/AdvReac Type Severity Reaction Status Date / Time No Known Allergies Allergy Verified 10/07/21 13:27 Home Medications Medication Instructions Recorded Confirmed Last Taken Type Unobtainable 10/08/21 10/08/21 Unknown History Active Meds: Active Medications Aripiprazole (Aripiprazole 10 Mg Tab) 20 mg PO QDAY [facility] Last Admin: 10/11/21 09:37 Dose: 20 mg Nystatin (Nystatin Cream 15 Gm Tube) 1 applic TP TID [facility] Last Admin: 10/11/21 08:58 Dose: 1 applic Trazodone HCl (Trazodone 50 Mg Tab) 50 mg PO QHS ROBERTO Last Admin: 10/10/21 21:37 Dose: 50 mg Results - Results Labs/Vitals: Laboratory Last Values WBC 5.5 K/mm3 (4.5-11.0) 10/07/21 13:40 RBC 3.78 M/mm3 (3.65-5.03) 10/07/21 13:40 Hgb 11.5 gm/dl (10.1-14.3) 10/07/21 13:40 Hct 34.9 % (30.3-42.9) 10/07/21 13:40 MCV 92 fl (79-97) 10/07/21 13:40 MCH 31 pg (28-32) 10/07/21 13:40 MCHC 33 % (30-34) 10/07/21 13:40 RDW 13.6 % (13.2-15.2) 10/07/21 13:40 Plt Count 240 K/mm3 (140-440) 10/07/21 13:40 Lymph % (Auto) 31.4 % (13.4-35.0) 10/07/21 13:40 [place] % (Auto) 6.6 % (0.0-7.3) 10/07/21 13:40 Eos % (Auto) 2.3 % (0.0-4.3) 10/07/21 13:40 Baso % (Auto) 0.8 % (0.0-1.8) 10/07/21 13:40 Lymph # (Auto) 1.7 K/mm3 (1.2-5.4) 10/07/21 13:40 [place] # (Auto) 0.4 K/mm3 (0.0-0.8) 10/07/21 13:40 Eos # (Auto) 0.1 K/mm3 (0.0-0.4) 10/07/21 13:40 Baso # (Auto) 0.0 K/mm3 (0.0-0.1) 10/07/21 13:40 Seg Neutrophils % 58.9 % (40.0-70.0) 10/07/21 13:40 Seg Neutrophils # 3.2 K/mm3 (1.8-7.7) 10/07/21 13:40 Sodium 145 mmol/L (137-145) 10/07/21 13:40 Potassium 3.9 mmol/L (3.6-5.0) 10/07/21 13:40 Chloride 107.4 mmol/L (98-107) H 10/07/21 13:40 Carbon Dioxide 27 mmol/L (22-30) 10/07/21 13:40 Anion Gap 15 mmol/L 10/07/21 13:40 BUN 11 mg/dL (7-17) 10/07/21 13:40 Creatinine 0.9 mg/dL (0.6-1.2) 10/07/21 13:40 Estimated GFR > 60 ml/min 10/07/21 13:40 BUN/Creatinine Ratio 12 % 10/07/21 13:40 Glucose 112 mg/dL (65-100) H 10/07/21 13:40 POC Glucose 117 mg/dL (70-105) H 10/07/21 23:22 Hemoglobin A1c 5.6 % (4-6) 10/07/21 13:40 Calcium 9.0 mg/dL (8.4-10.2) 10/07/21 13:40 Total Bilirubin 0.20 mg/dL (0.1-1.2) 10/07/21 13:40 AST 14 units/L (5-40) 10/07/21 13:40 ALT 17 units/L (7-56) 10/07/21 13:40 Alkaline Phosphatase 96 units/L (35-129) 10/07/21 13:40 Total Protein 6.1 g/dL (6.3-8.2) L 10/07/21 13:40 Albumin 3.4 g/dL (3.9-5) L 10/07/21 13:40 Albumin/Globulin Ratio 1.3 % 10/07/21 13:40 Triglycerides 120 mg/dL (2-149) 10/07/21 13:40 Cholesterol 147 mg/dL (50-199) 10/07/21 13:40 LDL Cholesterol Direct 94 mg/dL (50-130) 10/07/21 13:40 HDL Cholesterol 31 mg/dL (40-59) L 10/07/21 13:40 Cholesterol/HDL Ratio 4.74 % 10/07/21 13:40 TSH 0.817 mlU/mL (0.270-4.200) 10/07/21 13:40 Last Vital Signs Temp 98.6 F 10/11/21 07:30 Pulse 71 10/11/21 07:30 Resp 20 10/11/21 07:30 BP 125/61 10/11/21 07:30 Pulse Ox 95 10/11/21 07:30
--- NOTE | 2021-10-11 16:17 | Progress Note ---
Assessment and Plan Assessment and plan: --Cocaine abuse; I strongly advised to quit Patient advised importance of compliance with medications diet and follow-up visits and she is more receptive --Ongoing tobacco use; Nicotine patch, smoking cessation counseling when patient is able to understand Supportive care ---Mild protein calorie malnutrition present on admission Hypoalbuminemia, Nutrition supplements and supportive care ---Obesity; BMI 31.1 Advised diet modification, exercise as tolerated and weight reduction-Full CODE STATUS --DVT prophylaxis; SCDs while resting Ambulate as tolerated --Schizophrenia; management per psych Closely monitor the patient and adjust management as needed Plan of care reviewed with the patient and her nurse Thank you for this consultation We will follow the patient along with you Call us with questions History Interval history: I have seen and examined the patient at the bedside in [facility] psych unit Patient's chart and medications reviewed No new events reported by the nursing Patient is in the activity room cheerful No new complaints Vital signs reviewed Hospitalist Physical - Constitutional Vitals: Temp Pulse Resp BP Pulse Ox 98.6 F 71 20 125/61 95 10/11/21 07:30 10/11/21 07:30 10/11/21 07:30 10/11/21 07:30 10/11/21 07:30 General appearance: Present: no acute distress, obese, other (Cheerful) - EENT Eyes: Present: PERRL, EOM intact - Neck Neck: Present: supple, normal ROM - Respiratory Respiratory effort: normal Respiratory: bilateral: diminished, negative: rales, rhonchi, wheezing - Cardiovascular Rhythm: regular Heart Sounds: Present: S1 & S2 - Extremities Extremities: no ischemia, No edema - Abdominal General gastrointestinal: soft, non-tender, non-distended, normal bowel sounds - Integumentary Integumentary: Present: clear, warm - Psychiatric Psychiatric: appropriate mood/affect, cooperative - Neurologic Neurologic: CNII-XII intact, moves all extremities Results - Labs CBC & Chem 7: 10/07/21 13:40 10/07/21 13:40 Labs: Laboratory Last Values WBC 5.5 K/mm3 (4.5-11.0) 10/07/21 13:40 RBC 3.78 M/mm3 (3.65-5.03) 10/07/21 13:40 Hgb 11.5 gm/dl (10.1-14.3) 10/07/21 13:40 Hct 34.9 % (30.3-42.9) 10/07/21 13:40 MCV 92 fl (79-97) 10/07/21 13:40 MCH 31 pg (28-32) 10/07/21 13:40 MCHC 33 % (30-34) 10/07/21 13:40 RDW 13.6 % (13.2-15.2) 10/07/21 13:40 Plt Count 240 K/mm3 (140-440) 10/07/21 13:40 Lymph % (Auto) 31.4 % (13.4-35.0) 10/07/21 13:40 [place] % (Auto) 6.6 % (0.0-7.3) 10/07/21 13:40 Eos % (Auto) 2.3 % (0.0-4.3) 10/07/21 13:40 Baso % (Auto) 0.8 % (0.0-1.8) 10/07/21 13:40 Lymph # (Auto) 1.7 K/mm3 (1.2-5.4) 10/07/21 13:40 [place] # (Auto) 0.4 K/mm3 (0.0-0.8) 10/07/21 13:40 Eos # (Auto) 0.1 K/mm3 (0.0-0.4) 10/07/21 13:40 Baso # (Auto) 0.0 K/mm3 (0.0-0.1) 10/07/21 13:40 Seg Neutrophils % 58.9 % (40.0-70.0) 10/07/21 13:40 Seg Neutrophils # 3.2 K/mm3 (1.8-7.7) 10/07/21 13:40 Sodium 145 mmol/L (137-145) 10/07/21 13:40 Potassium 3.9 mmol/L (3.6-5.0) 10/07/21 13:40 Chloride 107.4 mmol/L (98-107) H 10/07/21 13:40 Carbon Dioxide 27 mmol/L (22-30) 10/07/21 13:40 Anion Gap 15 mmol/L 10/07/21 13:40 BUN 11 mg/dL (7-17) 10/07/21 13:40 Creatinine 0.9 mg/dL (0.6-1.2) 10/07/21 13:40 Estimated GFR > 60 ml/min 10/07/21 13:40 BUN/Creatinine Ratio 12 % 10/07/21 13:40 Glucose 112 mg/dL (65-100) H 10/07/21 13:40 POC Glucose 117 mg/dL (70-105) H 10/07/21 23:22 Hemoglobin A1c 5.6 % (4-6) 10/07/21 13:40 Calcium 9.0 mg/dL (8.4-10.2) 10/07/21 13:40 Total Bilirubin 0.20 mg/dL (0.1-1.2) 10/07/21 13:40 AST 14 units/L (5-40) 10/07/21 13:40 ALT 17 units/L (7-56) 10/07/21 13:40 Alkaline Phosphatase 96 units/L (35-129) 10/07/21 13:40 Total Protein 6.1 g/dL (6.3-8.2) L 10/07/21 13:40 Albumin 3.4 g/dL (3.9-5) L 10/07/21 13:40 Albumin/Globulin Ratio 1.3 % 10/07/21 13:40 Triglycerides 120 mg/dL (2-149) 10/07/21 13:40 Cholesterol 147 mg/dL (50-199) 10/07/21 13:40 LDL Cholesterol Direct 94 mg/dL (50-130) 10/07/21 13:40 HDL Cholesterol 31 mg/dL (40-59) L 10/07/21 13:40 Cholesterol/HDL Ratio 4.74 % 10/07/21 13:40 TSH 0.817 mlU/mL (0.270-4.200) 10/07/21 13:40 Maldonado/IV: Voiding Method Toilet Active Medications - Current Medications Current Medications: Generic Name Dose Route Start Last Admin Trade Name Freq PRN Reason Stop Dose Admin Aripiprazole 20 mg 10/10/21 11:00 10/11/21 09:37 Aripiprazole 10 Mg Tab PO 20 mg QDAY ROBERTO Administration Nystatin 1 applic 10/08/21 14:00 10/11/21 13:36 Nystatin Cream 15 Gm Tube TP 1 applic TID ROBERTO Administration Trazodone HCl 50 mg 10/08/21 22:00 10/10/21 21:37 Trazodone 50 Mg Tab PO 50 mg QHS ROBERTO Administration
[2021-10-11] MEDS: traZODone 50 MG TAB PO SCH (21:17)
[2021-10-12] MEDS: ARIPiprazole 10 MG TAB PO SCH (09:53)
[2021-10-12] MEDS: NYSTATIN CREAM 15 GM TUBE TP SCH ×3 (09:54→20:10)
--- NOTE | 2021-10-12 11:47 | Progress Note ---
Subjective Date of service: 10/12/21 Principal diagnosis: schizophrenia Subjective Comment: The patient was seen today. She is calm and cooperative. She denie SI/HI or hallucinations of any kind. She is asking about her discharge date. The patient will discharge tomorrow once the has complete outpatient resources to ensure continuity of mental wellness. REVIEW OF SYSTEMS Constitutional: Negative for weight loss ENT: Negative for stridor Respiratory: Negative for cough or hemoptysis All other systems reviewed and are negative MENTAL STATUS General Appearance and Behavior: age appropriate, good eye contact, cooperative, and calm Cooperation: Cooperative Psychomotor Behavior: within normal limits Mood: fine Affect and affective range: Congruent with stated mood Thought Process: circumstantial Thought Content: goal directed Speech: Normal volume and Regular rate and rhythm Suicidal Ideation: Denies Homicidal Ideation: Denies HI Hallucinations: denies Delusions: None elicited Impulse Control: Limited Insight and Judgment: Limited Memory: Limited Attention: distracted Orientation: alert and oriented Diagnoses: Schizophrenia Disorder Treatment Plan Patient will be admitted for inpatient psychiatric evaluation, medication adjustment and close monitoring The patient's behavior, mood, sleep and appetite will be closely monitored. Patient will be enrolled in individual and group therapeutic sessions and encouraged to attend. Patient will be provided with a safe and structured environment. Patient's physical health needs will be addressed by the Hospitalist. Hospitalist Consulted Labs including CBC, CMP, Lipid profile and Hemoglobin A1C ordered Social Assessment will be completed and the Ball Assembler will work with patient and family to ensure a suitable and safe disposition Medication adjustment will be made as clinically indicated Abilify 20mg po daily Usual Wellness Anabaptist/Preservation: - Start Trazodone 50 mg po QHS PRN - Start [place]-3 for brain health, reduce impulsivity, and as adjunctive treatment for mood disorder, continue upon discharge given overall benefits. The patient agreed on the treatment plan, understood the risk, benefit, alternative treatment, potential consequence of no treatment, and gave informed consent. Medications and Allergies Allergies Allergy/AdvReac Type Severity Reaction Status Date / Time No Known Allergies Allergy Verified 10/07/21 13:27 Home Medications Medication Instructions Recorded Confirmed Last Taken Type Unobtainable 10/08/21 10/08/21 Unknown History Active Meds: Active Medications Aripiprazole (Aripiprazole 10 Mg Tab) 20 mg PO QDAY ROBERTO Last Admin: 10/12/21 09:53 Dose: 20 mg Nystatin (Nystatin Cream 15 Gm Tube) 1 applic TP TID [facility] Last Admin: 10/12/21 09:54 Dose: 1 applic Trazodone HCl (Trazodone 50 Mg Tab) 50 mg PO QHS [facility] Last Admin: 10/11/21 21:17 Dose: 50 mg Results - Results Labs/Vitals: Laboratory Last Values WBC 5.5 K/mm3 (4.5-11.0) 10/07/21 13:40 RBC 3.78 M/mm3 (3.65-5.03) 10/07/21 13:40 Hgb 11.5 gm/dl (10.1-14.3) 10/07/21 13:40 Hct 34.9 % (30.3-42.9) 10/07/21 13:40 MCV 92 fl (79-97) 10/07/21 13:40 MCH 31 pg (28-32) 10/07/21 13:40 MCHC 33 % (30-34) 10/07/21 13:40 RDW 13.6 % (13.2-15.2) 10/07/21 13:40 Plt Count 240 K/mm3 (140-440) 10/07/21 13:40 Lymph % (Auto) 31.4 % (13.4-35.0) 10/07/21 13:40 [place] % (Auto) 6.6 % (0.0-7.3) 10/07/21 13:40 Eos % (Auto) 2.3 % (0.0-4.3) 10/07/21 13:40 Baso % (Auto) 0.8 % (0.0-1.8) 10/07/21 13:40 Lymph # (Auto) 1.7 K/mm3 (1.2-5.4) 10/07/21 13:40 [place] # (Auto) 0.4 K/mm3 (0.0-0.8) 10/07/21 13:40 Eos # (Auto) 0.1 K/mm3 (0.0-0.4) 10/07/21 13:40 Baso # (Auto) 0.0 K/mm3 (0.0-0.1) 10/07/21 13:40 Seg Neutrophils % 58.9 % (40.0-70.0) 10/07/21 13:40 Seg Neutrophils # 3.2 K/mm3 (1.8-7.7) 10/07/21 13:40 Sodium 145 mmol/L (137-145) 10/07/21 13:40 Potassium 3.9 mmol/L (3.6-5.0) 10/07/21 13:40 Chloride 107.4 mmol/L (98-107) H 10/07/21 13:40 Carbon Dioxide 27 mmol/L (22-30) 10/07/21 13:40 Anion Gap 15 mmol/L 10/07/21 13:40 BUN 11 mg/dL (7-17) 10/07/21 13:40 Creatinine 0.9 mg/dL (0.6-1.2) 10/07/21 13:40 Estimated GFR > 60 ml/min 10/07/21 13:40 BUN/Creatinine Ratio 12 % 10/07/21 13:40 Glucose 112 mg/dL (65-100) H 10/07/21 13:40 POC Glucose 117 mg/dL (70-105) H 10/07/21 23:22 Hemoglobin A1c 5.6 % (4-6) 10/07/21 13:40 Calcium 9.0 mg/dL (8.4-10.2) 10/07/21 13:40 Total Bilirubin 0.20 mg/dL (0.1-1.2) 10/07/21 13:40 AST 14 units/L (5-40) 10/07/21 13:40 ALT 17 units/L (7-56) 10/07/21 13:40 Alkaline Phosphatase 96 units/L (35-129) 10/07/21 13:40 Total Protein 6.1 g/dL (6.3-8.2) L 10/07/21 13:40 Albumin 3.4 g/dL (3.9-5) L 10/07/21 13:40 Albumin/Globulin Ratio 1.3 % 10/07/21 13:40 Triglycerides 120 mg/dL (2-149) 10/07/21 13:40 Cholesterol 147 mg/dL (50-199) 10/07/21 13:40 LDL Cholesterol Direct 94 mg/dL (50-130) 10/07/21 13:40 HDL Cholesterol 31 mg/dL (40-59) L 10/07/21 13:40 Cholesterol/HDL Ratio 4.74 % 10/07/21 13:40 TSH 0.817 mlU/mL (0.270-4.200) 10/07/21 13:40 Last Vital Signs Temp 97.9 F 10/11/21 19:39 Pulse 80 10/11/21 19:39 Resp 17 10/11/21 19:39 BP 140/75 10/11/21 19:39 Pulse Ox 97 10/11/21 19:39
--- NOTE | 2021-10-12 18:01 | Progress Note ---
Assessment and Plan Assessment and plan: --Cocaine abuse; I strongly advised to quit Patient advised importance of compliance with medications diet and follow-up visits and she is more receptive --Ongoing tobacco use; Nicotine patch, smoking cessation counseling when patient is able to understand Supportive care ---Mild protein calorie malnutrition present on admission Hypoalbuminemia, Nutrition supplements and supportive care ---Obesity; BMI 31.1 Advised diet modification, exercise as tolerated and weight reduction-Full CODE STATUS --DVT prophylaxis; SCDs while resting Ambulate as tolerated --Schizophrenia; management per psych Closely monitor the patient and adjust management as needed Plan of care reviewed with the patient and her nurse Call us with questions History Interval history: I have seen the patient in day room. Having snacks, very cheerful Anxious to go home Vital signs reviewed Hospitalist Physical - Constitutional Vitals: Temp Pulse Resp BP Pulse Ox 97.9 F 80 17 140/75 97 10/11/21 19:39 10/11/21 19:39 10/11/21 19:39 10/11/21 19:39 10/11/21 19:39 General appearance: Present: no acute distress, obese, other (Cheerful) - EENT Eyes: Present: PERRL, EOM intact - Neck Neck: Present: supple, normal ROM - Respiratory Respiratory effort: labored Respiratory: bilateral: diminished, negative: rales, rhonchi, wheezing - Cardiovascular Rhythm: regular Heart Sounds: Present: S1 & S2 - Extremities Extremities: no ischemia, No edema - Abdominal General gastrointestinal: soft, non-tender, non-distended, normal bowel sounds - Integumentary Integumentary: Present: clear, warm - Psychiatric Psychiatric: appropriate mood/affect, cooperative - Neurologic Neurologic: moves all extremities Results - Labs CBC & Chem 7: 10/07/21 13:40 10/07/21 13:40 Labs: Laboratory Last Values WBC 5.5 K/mm3 (4.5-11.0) 10/07/21 13:40 RBC 3.78 M/mm3 (3.65-5.03) 10/07/21 13:40 Hgb 11.5 gm/dl (10.1-14.3) 10/07/21 13:40 Hct 34.9 % (30.3-42.9) 10/07/21 13:40 MCV 92 fl (79-97) 10/07/21 13:40 MCH 31 pg (28-32) 10/07/21 13:40 MCHC 33 % (30-34) 10/07/21 13:40 RDW 13.6 % (13.2-15.2) 10/07/21 13:40 Plt Count 240 K/mm3 (140-440) 10/07/21 13:40 Lymph % (Auto) 31.4 % (13.4-35.0) 10/07/21 13:40 [place] % (Auto) 6.6 % (0.0-7.3) 10/07/21 13:40 Eos % (Auto) 2.3 % (0.0-4.3) 10/07/21 13:40 Baso % (Auto) 0.8 % (0.0-1.8) 10/07/21 13:40 Lymph # (Auto) 1.7 K/mm3 (1.2-5.4) 10/07/21 13:40 [place] # (Auto) 0.4 K/mm3 (0.0-0.8) 10/07/21 13:40 Eos # (Auto) 0.1 K/mm3 (0.0-0.4) 10/07/21 13:40 Baso # (Auto) 0.0 K/mm3 (0.0-0.1) 10/07/21 13:40 Seg Neutrophils % 58.9 % (40.0-70.0) 10/07/21 13:40 Seg Neutrophils # 3.2 K/mm3 (1.8-7.7) 10/07/21 13:40 Sodium 145 mmol/L (137-145) 10/07/21 13:40 Potassium 3.9 mmol/L (3.6-5.0) 10/07/21 13:40 Chloride 107.4 mmol/L (98-107) H 10/07/21 13:40 Carbon Dioxide 27 mmol/L (22-30) 10/07/21 13:40 Anion Gap 15 mmol/L 10/07/21 13:40 BUN 11 mg/dL (7-17) 10/07/21 13:40 Creatinine 0.9 mg/dL (0.6-1.2) 10/07/21 13:40 Estimated GFR > 60 ml/min 10/07/21 13:40 BUN/Creatinine Ratio 12 % 10/07/21 13:40 Glucose 112 mg/dL (65-100) H 10/07/21 13:40 POC Glucose 117 mg/dL (70-105) H 10/07/21 23:22 Hemoglobin A1c 5.6 % (4-6) 10/07/21 13:40 Calcium 9.0 mg/dL (8.4-10.2) 10/07/21 13:40 Total Bilirubin 0.20 mg/dL (0.1-1.2) 10/07/21 13:40 AST 14 units/L (5-40) 10/07/21 13:40 ALT 17 units/L (7-56) 10/07/21 13:40 Alkaline Phosphatase 96 units/L (35-129) 10/07/21 13:40 Total Protein 6.1 g/dL (6.3-8.2) L 10/07/21 13:40 Albumin 3.4 g/dL (3.9-5) L 10/07/21 13:40 Albumin/Globulin Ratio 1.3 % 10/07/21 13:40 Triglycerides 120 mg/dL (2-149) 10/07/21 13:40 Cholesterol 147 mg/dL (50-199) 10/07/21 13:40 LDL Cholesterol Direct 94 mg/dL (50-130) 10/07/21 13:40 HDL Cholesterol 31 mg/dL (40-59) L 10/07/21 13:40 Cholesterol/HDL Ratio 4.74 % 10/07/21 13:40 TSH 0.817 mlU/mL (0.270-4.200) 10/07/21 13:40 Maldonado/IV: Voiding Method Toilet Active Medications - Current Medications Current Medications: Generic Name Dose Route Start Last Admin Trade Name Freq PRN Reason Stop Dose Admin Aripiprazole 20 mg 10/10/21 11:00 10/12/21 09:53 Aripiprazole 10 Mg Tab PO 20 mg QDAY ROBERTO Administration Nystatin 1 applic 10/08/21 14:00 10/12/21 09:54 Nystatin Cream 15 Gm Tube TP 1 applic TID ROBERTO Administration Trazodone HCl 50 mg 10/08/21 22:00 10/11/21 21:17 Trazodone 50 Mg Tab PO 50 mg QHS ROBERTO Administration
[2021-10-12] MEDS: traZODone 50 MG TAB PO SCH ×2 (21:02→21:07)
[2021-10-13] MEDS: ARIPiprazole 10 MG TAB PO SCH (09:14)
[2021-10-13] MEDS: NYSTATIN CREAM 15 GM TUBE TP SCH ×4 (09:15→22:58)
--- NOTE | 2021-10-13 11:12 | Progress Note ---
Subjective Date of service: 10/13/21 Principal diagnosis: schizophrenia Subjective Comment: The patient was seen today. She is calm and cooperative. She is pleasant. She denies SI/HI or hallucinations. She will discharge tomorrow if no events overnight. REVIEW OF SYSTEMS Constitutional: Negative for weight loss ENT: Negative for stridor Respiratory: Negative for cough or hemoptysis All other systems reviewed and are negative MENTAL STATUS General Appearance and Behavior: age appropriate, good eye contact, cooperative, and calm Cooperation: Cooperative Psychomotor Behavior: within normal limits Mood: fine Affect and affective range: Congruent with stated mood Thought Process: circumstantial Thought Content: goal directed Speech: Normal volume and Regular rate and rhythm Suicidal Ideation: Denies Homicidal Ideation: Denies HI Hallucinations: denies Delusions: None elicited Impulse Control: Limited Insight and Judgment: Limited Memory: Limited Attention: distracted Orientation: alert and oriented Diagnoses: Schizophrenia Disorder Treatment Plan Patient will be admitted for inpatient psychiatric evaluation, medication adjustment and close monitoring The patient's behavior, mood, sleep and appetite will be closely monitored. Patient will be enrolled in individual and group therapeutic sessions and encou raged to attend. Patient will be provided with a safe and structured environment. Patient's physical health needs will be addressed by the Hospitalist. Hospitalist Consulted Labs including CBC, CMP, Lipid profile and Hemoglobin A1C ordered Social Assessment will be completed and the Field Checker will work with patient and family to ensure a suitable and safe disposition Medication adjustment will be made as clinically indicated Abilify 20mg po daily Usual Wellness Islam/Preservation: - Start Trazodone 50 mg po QHS PRN - Start [place]-3 for brain health, reduce impulsivity, and as adjunctive treatment for mood disorder, continue upon discharge given overall benefits. The patient agreed on the treatment plan, understood the risk, benefit, a lternative treatment, potential consequence of no treatment, and gave informed consent. Medications and Allergies Allergies Allergy/AdvReac Type Severity Reaction Status Date / Time No Known Allergies Allergy Verified 10/07/21 13:27 Home Medications Medication Instructions Recorded Confirmed Last Taken Type Unobtainable 10/08/21 10/08/21 Unknown History Active Meds: Active Medications Aripiprazole (Aripiprazole 10 Mg Tab) 20 mg PO QDAY [facility] Last Admin: 10/13/21 09:14 Dose: 20 mg Nystatin (Nystatin Cream 15 Gm Tube) 1 applic TP TID [facility] Last Admin: 10/13/21 09:19 Dose: Not Given Trazodone HCl (Trazodone 50 Mg Tab) 50 mg PO QHS [facility] Last Admin: 10/12/21 21:07 Dose: Not Given Results - Results Labs/Vitals: Laboratory Last Values WBC 5.5 K/mm3 (4.5-11.0) 10/07/21 13:40 RBC 3.78 M/mm3 (3.65-5.03) 10/07/21 13:40 Hgb 11.5 gm/dl (10.1-14.3) 10/07/21 13:40 Hct 34.9 % (30.3-42.9) 10/07/21 13:40 MCV 92 fl (79-97) 10/07/21 13:40 MCH 31 pg (28-32) 10/07/21 13:40 MCHC 33 % (30-34) 10/07/21 13:40 RDW 13.6 % (13.2-15.2) 10/07/21 13:40 Plt Count 240 K/mm3 (140-440) 10/07/21 13:40 Lymph % (Auto) 31.4 % (13.4-35.0) 10/07/21 13:40 [place] % (Auto) 6.6 % (0.0-7.3) 10/07/21 13:40 Eos % (Auto) 2.3 % (0.0-4.3) 10/07/21 13:40 Baso % (Auto) 0.8 % (0.0-1.8) 10/07/21 13:40 Lymph # (Auto) 1.7 K/mm3 (1.2-5.4) 10/07/21 13:40 [place] # (Auto) 0.4 K/mm3 (0.0-0.8) 10/07/21 13:40 Eos # (Auto) 0.1 K/mm3 (0.0-0.4) 10/07/21 13:40 Baso # (Auto) 0.0 K/mm3 (0.0-0.1) 10/07/21 13:40 Seg Neutrophils % 58.9 % (40.0-70.0) 10/07/21 13:40 Seg Neutrophils # 3.2 K/mm3 (1.8-7.7) 10/07/21 13:40 Sodium 145 mmol/L (137-145) 10/07/21 13:40 Potassium 3.9 mmol/L (3.6-5.0) 10/07/21 13:40 Chloride 107.4 mmol/L (98-107) H 10/07/21 13:40 Carbon Dioxide 27 mmol/L (22-30) 10/07/21 13:40 Anion Gap 15 mmol/L 10/07/21 13:40 BUN 11 mg/dL (7-17) 10/07/21 13:40 Creatinine 0.9 mg/dL (0.6-1.2) 10/07/21 13:40 Estimated GFR > 60 ml/min 10/07/21 13:40 BUN/Creatinine Ratio 12 % 10/07/21 13:40 Glucose 112 mg/dL (65-100) H 10/07/21 13:40 POC Glucose 117 mg/dL (70-105) H 10/07/21 23:22 Hemoglobin A1c 5.6 % (4-6) 10/07/21 13:40 Calcium 9.0 mg/dL (8.4-10.2) 10/07/21 13:40 Total Bilirubin 0.20 mg/dL (0.1-1.2) 10/07/21 13:40 AST 14 units/L (5-40) 10/07/21 13:40 ALT 17 units/L (7-56) 10/07/21 13:40 Alkaline Phosphatase 96 units/L (35-129) 10/07/21 13:40 Total Protein 6.1 g/dL (6.3-8.2) L 10/07/21 13:40 Albumin 3.4 g/dL (3.9-5) L 10/07/21 13:40 Albumin/Globulin Ratio 1.3 % 10/07/21 13:40 Triglycerides 120 mg/dL (2-149) 10/07/21 13:40 Cholesterol 147 mg/dL (50-199) 10/07/21 13:40 LDL Cholesterol Direct 94 mg/dL (50-130) 10/07/21 13:40 HDL Cholesterol 31 mg/dL (40-59) L 10/07/21 13:40 Cholesterol/HDL Ratio 4.74 % 10/07/21 13:40 TSH 0.817 mlU/mL (0.270-4.200) 10/07/21 13:40 Last Vital Signs Temp 98.6 F 10/12/21 20:33 Pulse 76 10/12/21 20:33 Resp 18 10/12/21 20:33 BP 150/74 10/12/21 20:33 Pulse Ox 96 10/12/21 20:33
--- NOTE | 2021-10-13 12:13 | Progress Note ---
Assessment and Plan - Patient Problems (1) Hypertension Current Visit: Yes Status: Acute Qualifiers: Hypertension type: primary hypertension Qualified Code(s): I10 - Essential (primary) hypertension Plan to address problem: Monitor blood pressure every shift, continue medical management (2) Hyperlipidemia Current Visit: Yes Status: Acute Plan to address problem: Statin therapy, low-cholesterol diet, supportive care. (3) Polysubstance abuse Current Visit: Yes Status: Acute Plan to address problem: Supportive care, outpatient drug dependence follow-up. (4) Obesity (BMI 30.0-34.9) Current Visit: Yes Status: Acute Plan to address problem: Balanced diet, increase physical activity discharge (5) Vascular dementia with behavior disturbance Current Visit: Yes Status: Acute Plan to address problem: Verbal prompting, verbal redirection, benzodiazepine therapy as clinically indicated. (6) Cerebral atherosclerosis Current Visit: Yes Status: Acute Plan to address problem: Risk factor reduction, antiplatelet therapy as clinically indicated. (7) Advance care planning Current Visit: Yes Status: Acute Plan to address problem: Disease education data, care plan discussed, diagnoses discussed, prognosis discussed, patient knowledges understanding and agreement with care plan. +30 minutes (8) Preventative health care Current Visit: Yes Status: Acute Plan to address problem: Patient counseled regarding home safety, risk factor reduction, outpatient follow-up with primary care physician for all age and risk factor appropriate screening test. +30 minutes History Interval history: 61 YO Female with Vascular Dementia with behavioral disturbance, Cerebral Atherosclerosis, HTN, HLD, CAD, PSA, Schizophrenia admitted to [facility] psych unit for psychiatric stabilization. Patient seen and evaluated in the recreation room. Patient appears to be at baseline level of cognition and function. No reported nursing events. Hospitalist Physical - Constitutional Vitals: Temp Pulse Resp BP Pulse Ox 98.6 F 76 18 150/74 96 10/12/21 20:33 10/12/21 20:33 10/12/21 20:33 10/12/21 20:33 10/12/21 20:33 General appearance: Present: no acute distress, obese, other (Cheerful) - EENT Eyes: Present: PERRL ENT: hearing intact - Neck Neck: Present: supple - Respiratory Respiratory effort: normal Respiratory: bilateral: CTA - Cardiovascular Rhythm: regular Heart Sounds: Present: S1 & S2 - Extremities Extremities: no ischemia Peripheral Pulses: within normal limits - Abdominal General gastrointestinal: soft, non-tender, non-distended - Integumentary Integumentary: Present: clear, dry - Psychiatric Psychiatric: cooperative - Neurologic Neurologic: CNII-XII intact Results - Labs CBC & Chem 7: 10/07/21 13:40 10/07/21 13:40 Labs: Laboratory Last Values WBC 5.5 K/mm3 (4.5-11.0) 10/07/21 13:40 RBC 3.78 M/mm3 (3.65-5.03) 10/07/21 13:40 Hgb 11.5 gm/dl (10.1-14.3) 10/07/21 13:40 Hct 34.9 % (30.3-42.9) 10/07/21 13:40 MCV 92 fl (79-97) 10/07/21 13:40 MCH 31 pg (28-32) 10/07/21 13:40 MCHC 33 % (30-34) 10/07/21 13:40 RDW 13.6 % (13.2-15.2) 10/07/21 13:40 Plt Count 240 K/mm3 (140-440) 10/07/21 13:40 Lymph % (Auto) 31.4 % (13.4-35.0) 10/07/21 13:40 [place] % (Auto) 6.6 % (0.0-7.3) 10/07/21 13:40 Eos % (Auto) 2.3 % (0.0-4.3) 10/07/21 13:40 Baso % (Auto) 0.8 % (0.0-1.8) 10/07/21 13:40 Lymph # (Auto) 1.7 K/mm3 (1.2-5.4) 10/07/21 13:40 [place] # (Auto) 0.4 K/mm3 (0.0-0.8) 10/07/21 13:40 Eos # (Auto) 0.1 K/mm3 (0.0-0.4) 10/07/21 13:40 Baso # (Auto) 0.0 K/mm3 (0.0-0.1) 10/07/21 13:40 Seg Neutrophils % 58.9 % (40.0-70.0) 10/07/21 13:40 Seg Neutrophils # 3.2 K/mm3 (1.8-7.7) 10/07/21 13:40 Sodium 145 mmol/L (137-145) 10/07/21 13:40 Potassium 3.9 mmol/L (3.6-5.0) 10/07/21 13:40 Chloride 107.4 mmol/L (98-107) H 10/07/21 13:40 Carbon Dioxide 27 mmol/L (22-30) 10/07/21 13:40 Anion Gap 15 mmol/L 10/07/21 13:40 BUN 11 mg/dL (7-17) 10/07/21 13:40 Creatinine 0.9 mg/dL (0.6-1.2) 10/07/21 13:40 Estimated GFR > 60 ml/min 10/07/21 13:40 BUN/Creatinine Ratio 12 % 10/07/21 13:40 Glucose 112 mg/dL (65-100) H 10/07/21 13:40 POC Glucose 117 mg/dL (70-105) H 10/07/21 23:22 Hemoglobin A1c 5.6 % (4-6) 10/07/21 13:40 Calcium 9.0 mg/dL (8.4-10.2) 10/07/21 13:40 Total Bilirubin 0.20 mg/dL (0.1-1.2) 10/07/21 13:40 AST 14 units/L (5-40) 10/07/21 13:40 ALT 17 units/L (7-56) 10/07/21 13:40 Alkaline Phosphatase 96 units/L (35-129) 10/07/21 13:40 Total Protein 6.1 g/dL (6.3-8.2) L 10/07/21 13:40 Albumin 3.4 g/dL (3.9-5) L 10/07/21 13:40 Albumin/Globulin Ratio 1.3 % 10/07/21 13:40 Triglycerides 120 mg/dL (2-149) 10/07/21 13:40 Cholesterol 147 mg/dL (50-199) 10/07/21 13:40 LDL Cholesterol Direct 94 mg/dL (50-130) 10/07/21 13:40 HDL Cholesterol 31 mg/dL (40-59) L 10/07/21 13:40 Cholesterol/HDL Ratio 4.74 % 10/07/21 13:40 TSH 0.817 mlU/mL (0.270-4.200) 10/07/21 13:40 Maldonado/IV: Voiding Method Toilet Active Medications - Current Medications Current Medications: Generic Name Dose Route Start Last Admin Trade Name Freq PRN Reason Stop Dose Admin Aripiprazole 20 mg 10/10/21 11:00 10/13/21 09:14 Aripiprazole 10 Mg Tab PO 20 mg QDAY ROBERTO Administration Nystatin 1 applic 10/08/21 14:00 10/13/21 09:19 Nystatin Cream 15 Gm Tube TP Not Given TID ROBERTO Trazodone HCl 50 mg 10/08/21 22:00 10/12/21 21:07 Trazodone 50 Mg Tab PO Not Given QHS ROBERTO
[2021-10-13] MEDS: traZODone 50 MG TAB PO SCH (22:58)
--- NOTE | 2021-10-14 09:11 | Progress Note ---
Subjective Date of service: 10/14/21 Principal diagnosis: schizophrenia Subjective Comment: The patient was seen today. She says she feels good. She is anxious to go home. She denies SI/HI or hallucinations of any kind. The patient is awaiting placement. REVIEW OF SYSTEMS Constitutional: Negative for weight loss ENT: Negative for stridor Respiratory: Negative for cough or hemoptysis All other systems reviewed and are negative MENTAL STATUS General Appearance and Behavior: age appropriate, good eye contact, cooperative, and calm Cooperation: Cooperative Psychomotor Behavior: within normal limits Mood: fine Affect and affective range: Congruent with stated mood Thought Process: circumstantial Thought Content: goal directed Speech: Normal volume and Regular rate and rhythm Suicidal Ideation: Denies Homicidal Ideation: Denies HI Hallucinations: denies Delusions: None elicited Impulse Control: Limited Insight and Judgment: Limited Memory: Limited Attention: distracted Orientation: alert and oriented Diagnoses: Schizophrenia Disorder Treatment Plan Patient will be admitted for inpatient psychiatric evaluation, medication adjustment and close monitoring The patient's behavior, mood, sleep and appetite will be closely monitored. Patient will be enrolled in individual and group therapeutic sessions and enco uraged to attend. Patient will be provided with a safe and structured environment. Patient's physical health needs will be addressed by the Hospitalist. Hospitalist Consulted Labs including CBC, CMP, Lipid profile and Hemoglobin A1C ordered Social Assessment will be completed and the [facility] will work with patient and family to ensure a suitable and safe disposition Medication adjustment will be made as clinically indicated Abilify 20mg po daily Usual Wellness Worship/Preservation: - Start Trazodone 50 mg po QHS PRN - Start [place]-3 for brain health, reduce impulsivity, and as adjunctive treatment for mood disorder, continue upon discharge given overall benefits. The patient agreed on the treatment plan, understood the risk, benefit, alternative treatment, potential consequence of no treatment, and gave informed consent. Medications and Allergies Allergies Allergy/AdvReac Type Severity Reaction Status Date / Time No Known Allergies Allergy Verified 10/07/21 13:27 Home Medications Medication Instructions Recorded Confirmed Last Taken Type Unobtainable 10/08/21 10/08/21 Unknown History Active Meds: Active Medications Aripiprazole (Aripiprazole 10 Mg Tab) 20 mg PO QDAY [facility] Last Admin: 10/13/21 09:14 Dose: 20 mg Nystatin (Nystatin Cream 15 Gm Tube) 1 applic TP TID [facility] Last Admin: 10/13/21 22:58 Dose: 1 applic Trazodone HCl (Trazodone 50 Mg Tab) 50 mg PO QHS [facility] Last Admin: 10/13/21 22:58 Dose: 50 mg Results - Results Labs/Vitals: Laboratory Last Values WBC 5.5 K/mm3 (4.5-11.0) 10/07/21 13:40 RBC 3.78 M/mm3 (3.65-5.03) 10/07/21 13:40 Hgb 11.5 gm/dl (10.1-14.3) 10/07/21 13:40 Hct 34.9 % (30.3-42.9) 10/07/21 13:40 MCV 92 fl (79-97) 10/07/21 13:40 MCH 31 pg (28-32) 10/07/21 13:40 MCHC 33 % (30-34) 10/07/21 13:40 RDW 13.6 % (13.2-15.2) 10/07/21 13:40 Plt Count 240 K/mm3 (140-440) 10/07/21 13:40 Lymph % (Auto) 31.4 % (13.4-35.0) 10/07/21 13:40 [place] % (Auto) 6.6 % (0.0-7.3) 10/07/21 13:40 Eos % (Auto) 2.3 % (0.0-4.3) 10/07/21 13:40 Baso % (Auto) 0.8 % (0.0-1.8) 10/07/21 13:40 Lymph # (Auto) 1.7 K/mm3 (1.2-5.4) 10/07/21 13:40 [place] # (Auto) 0.4 K/mm3 (0.0-0.8) 10/07/21 13:40 Eos # (Auto) 0.1 K/mm3 (0.0-0.4) 10/07/21 13:40 Baso # (Auto) 0.0 K/mm3 (0.0-0.1) 10/07/21 13:40 Seg Neutrophils % 58.9 % (40.0-70.0) 10/07/21 13:40 Seg Neutrophils # 3.2 K/mm3 (1.8-7.7) 10/07/21 13:40 Sodium 145 mmol/L (137-145) 10/07/21 13:40 Potassium 3.9 mmol/L (3.6-5.0) 10/07/21 13:40 Chloride 107.4 mmol/L (98-107) H 10/07/21 13:40 Carbon Dioxide 27 mmol/L (22-30) 10/07/21 13:40 Anion Gap 15 mmol/L 10/07/21 13:40 BUN 11 mg/dL (7-17) 10/07/21 13:40 Creatinine 0.9 mg/dL (0.6-1.2) 10/07/21 13:40 Estimated GFR > 60 ml/min 10/07/21 13:40 BUN/Creatinine Ratio 12 % 10/07/21 13:40 Glucose 112 mg/dL (65-100) H 10/07/21 13:40 POC Glucose 117 mg/dL (70-105) H 10/07/21 23:22 Hemoglobin A1c 5.6 % (4-6) 10/07/21 13:40 Calcium 9.0 mg/dL (8.4-10.2) 10/07/21 13:40 Total Bilirubin 0.20 mg/dL (0.1-1.2) 10/07/21 13:40 AST 14 units/L (5-40) 10/07/21 13:40 ALT 17 units/L (7-56) 10/07/21 13:40 Alkaline Phosphatase 96 units/L (35-129) 10/07/21 13:40 Total Protein 6.1 g/dL (6.3-8.2) L 10/07/21 13:40 Albumin 3.4 g/dL (3.9-5) L 10/07/21 13:40 Albumin/Globulin Ratio 1.3 % 10/07/21 13:40 Triglycerides 120 mg/dL (2-149) 10/07/21 13:40 Cholesterol 147 mg/dL (50-199) 10/07/21 13:40 LDL Cholesterol Direct 94 mg/dL (50-130) 10/07/21 13:40 HDL Cholesterol 31 mg/dL (40-59) L 10/07/21 13:40 Cholesterol/HDL Ratio 4.74 % 10/07/21 13:40 TSH 0.817 mlU/mL (0.270-4.200) 10/07/21 13:40 Last Vital Signs Temp 98.3 F 10/14/21 07:28 Pulse 61 10/14/21 07:28 Resp 18 10/14/21 07:28 BP 114/56 10/14/21 07:28 Pulse Ox 95 10/14/21 07:28
[2021-10-14] MEDS: ARIPiprazole 10 MG TAB PO SCH (10:32)
[2021-10-14] MEDS: NYSTATIN CREAM 15 GM TUBE TP SCH ×3 (10:32→21:15)
[2021-10-14] MEDS ORDERED: ARIPIPRAZOLE 400 MG IM ONE (18:00)
--- NOTE | 2021-10-14 18:16 | XRay Report ---
CHEST 1 VIEW 10/14/2021 4:50 PM INDICATION / CLINICAL INFORMATION: r/o TB. COMPARISON: None available. FINDINGS: SUPPORT DEVICES: None. HEART / MEDIASTINUM: No significant abnormality. LUNGS / PLEURA: No significant pulmonary abnormality. No significant pleural effusion. No pneumothora x. ADDITIONAL FINDINGS: No significant additional findings. IMPRESSION: 1. No radiographic evidence of active tuberculosis or other acute findings. Signer Name: Isidoro Soliman MD Signed: 10/14/2021 6:12 PM Workstation Name: [employer]
[2021-10-14] MEDS: traZODone 50 MG TAB PO SCH (21:14)
--- NOTE | 2021-10-15 08:28 | Discharge Summary ---
Providers - Providers Date of Admission: 10/07/21 21:49 Date of discharge: 10/15/21 Attending physician: RAFI TRIPATHI MD 10/07/21 20:39 Consult to Physician [CONS] Routine Comment: Consulting Provider: JAMES CAMILO Physician Instructions: Reason For Exam: MANAGEMENT OF MEDICAL PROBLEMS Primary care physician: STUDIO OWNER Hospitalization Reason for admission: psychosis Admitting Diagnosis: F20.9 - SCHIZOPHRENIA, UNSPECIFIED Condition: Stable Hospital course: The patient was provided inpatient psychiatric treatment with safe and supportive care, medication adjustment, adverse effect monitoring, medical evaluations, medical treatments, assessment and psycho-education. The patient's mood, cognition, behavior, moral support are improved and stabilized. St the time of discharge, the patient had no endangering behavior and no debilitating adverse effects. The patient agreed on potential consequences of no treatment and gave informed consent. 10/15 The patient was seen today. She is calm and cooperative. She expresses being ready to go home. She denies SI/HI or hallucinations of any kind. Disposition: 01 HOME / SELF CARE / HOMELESS Time spent for discharge: 35 Allergies/Adverse Reactions: Allergies No Known Allergies Allergy (Verified 10/07/21 13:27) Vital Signs: Last Vital Signs Temp 98.2 F 10/14/21 19:26 Pulse 76 10/14/21 19:26 Resp 18 10/14/21 19:26 BP 132/57 10/14/21 19:26 Pulse Ox 99 10/14/21 19:26 Last Lab: Laboratory Last Values WBC 5.5 K/mm3 (4.5-11.0) 10/07/21 13:40 RBC 3.78 M/mm3 (3.65-5.03) 10/07/21 13:40 Hgb 11.5 gm/dl (10.1-14.3) 10/07/21 13:40 Hct 34.9 % (30.3-42.9) 10/07/21 13:40 MCV 92 fl (79-97) 10/07/21 13:40 MCH 31 pg (28-32) 10/07/21 13:40 MCHC 33 % (30-34) 10/07/21 13:40 RDW 13.6 % (13.2-15.2) 10/07/21 13:40 Plt Count 240 K/mm3 (140-440) 10/07/21 13:40 Lymph % (Auto) 31.4 % (13.4-35.0) 10/07/21 13:40 [place] % (Auto) 6.6 % (0.0-7.3) 10/07/21 13:40 Eos % (Auto) 2.3 % (0.0-4.3) 10/07/21 13:40 Baso % (Auto) 0.8 % (0.0-1.8) 10/07/21 13:40 Lymph # (Auto) 1.7 K/mm3 (1.2-5.4) 10/07/21 13:40 [place] # (Auto) 0.4 K/mm3 (0.0-0.8) 10/07/21 13:40 Eos # (Auto) 0.1 K/mm3 (0.0-0.4) 10/07/21 13:40 Baso # (Auto) 0.0 K/mm3 (0.0-0.1) 10/07/21 13:40 Seg Neutrophils % 58.9 % (40.0-70.0) 10/07/21 13:40 Seg Neutrophils # 3.2 K/mm3 (1.8-7.7) 10/07/21 13:40 Sodium 145 mmol/L (137-145) 10/07/21 13:40 Potassium 3.9 mmol/L (3.6-5.0) 10/07/21 13:40 Chloride 107.4 mmol/L (98-107) H 10/07/21 13:40 Carbon Dioxide 27 mmol/L (22-30) 10/07/21 13:40 Anion Gap 15 mmol/L 10/07/21 13:40 BUN 11 mg/dL (7-17) 10/07/21 13:40 Creatinine 0.9 mg/dL (0.6-1.2) 10/07/21 13:40 Estimated GFR > 60 ml/min 10/07/21 13:40 BUN/Creatinine Ratio 12 % 10/07/21 13:40 Glucose 112 mg/dL (65-100) H 10/07/21 13:40 POC Glucose 117 mg/dL (70-105) H 10/07/21 23:22 Hemoglobin A1c 5.6 % (4-6) 10/07/21 13:40 Calcium 9.0 mg/dL (8.4-10.2) 10/07/21 13:40 Total Bilirubin 0.20 mg/dL (0.1-1.2) 10/07/21 13:40 AST 14 units/L (5-40) 10/07/21 13:40 ALT 17 units/L (7-56) 10/07/21 13:40 Alkaline Phosphatase 96 units/L (35-129) 10/07/21 13:40 Total Protein 6.1 g/dL (6.3-8.2) L 10/07/21 13:40 Albumin 3.4 g/dL (3.9-5) L 10/07/21 13:40 Albumin/Globulin Ratio 1.3 % 10/07/21 13:40 Triglycerides 120 mg/dL (2-149) 10/07/21 13:40 Cholesterol 147 mg/dL (50-199) 10/07/21 13:40 LDL Cholesterol Direct 94 mg/dL (50-130) 10/07/21 13:40 HDL Cholesterol 31 mg/dL (40-59) L 10/07/21 13:40 Cholesterol/HDL Ratio 4.74 % 10/07/21 13:40 TSH 0.817 mlU/mL (0.270-4.200) 10/07/21 13:40 Core Measure Documentation - Palliative Care Palliative Care/ Comfort Measures: Not Applicable - Core Measures Any of the following diagnoses?: none Exam - Constitutional Vitals: Temp Pulse Resp BP Pulse Ox 98.2 F 76 18 132/57 99 10/14/21 19:26 10/14/21 19:26 10/14/21 19:26 10/14/21 19:26 10/14/21 19:26 General appearance: Present: no acute distress - EENT Eyes: Present: PERRL, EOM intact ENT: hearing intact, clear oral mucosa - Neck Neck: Present: supple, normal ROM - Respiratory Respiratory effort: normal Plan Activity: advance as tolerated Weight Bearing Status: Weight Bear as Tolerated Care Plan Goals: Maintain good and stable mental health Plan of Treatment: The patient should be compliant with medications, not to use drugs, and not to drink alcohol. The patient understands that if suicidal ideas, homicidal ideas or any endangering feeling arise, the patient should seek assistance including, but not limited to crisis hotline, and emergency room. Assessment: Schizophrenia Follow up with: PRIMARY CARE, [Primary Care Provider] - 7 Days Prescriptions: traZODone [Desyrel] 50 mg PO QHS #30 tablet ARIPiprazole [Abilify TAB] 20 mg PO QDAY #60 tablet
[2021-10-15 09:17] VITALS: BP 91/58
[2021-10-15] MEDS: NYSTATIN CREAM 15 GM TUBE TP SCH ×2 (09:41→17:06)
[2021-10-15] MEDS: ARIPiprazole 10 MG TAB PO SCH (09:41)
--- NOTE | 2021-10-15 18:07 | Progress Note ---
Assessment and Plan - Patient Problems (1) Hypertension Current Visit: Yes Status: Acute Qualifiers: Hypertension type: primary hypertension Qualified Code(s): I10 - Essential (primary) hypertension Plan to address problem: Monitor blood pressure every shift, continue medical management (2) Hyperlipidemia Current Visit: Yes Status: Acute Plan to address problem: Statin therapy, low-cholesterol diet, supportive care. (3) Polysubstance abuse Current Visit: Yes Status: Acute Plan to address problem: Supportive care, outpatient drug dependence follow-up. (4) Obesity (BMI 30.0-34.9) Current Visit: Yes Status: Acute Plan to address problem: Balanced diet, increase physical activity discharge (5) Vascular dementia with behavior disturbance Current Visit: Yes Status: Acute Plan to address problem: Verbal prompting, verbal redirection, benzodiazepine therapy as clinically indicated. (6) Cerebral atherosclerosis Current Visit: Yes Status: Acute Plan to address problem: Risk factor reduction, antiplatelet therapy as clinically indicated. (7) Advance care planning Current Visit: Yes Status: Acute Plan to address problem: Disease education data, care plan discussed, diagnoses discussed, prognosis discussed, patient knowledges understanding and agreement with care plan. +30 minutes (8) Preventative health care Current Visit: Yes Status: Acute Plan to address problem: Patient counseled regarding home safety, risk factor reduction, outpatient follow-up with primary care physician for all age and risk factor appropriate screening test. +30 minutes History Interval history: 61 YO Female with Vascular Dementia with behavioral disturbance, Cerebral Atherosclerosis, HTN, HLD, CAD, PSA, Schizophrenia admitted to [facility] for psychiatric stabilization. Patient seen and evaluated in the recreation room. Patient appears to be at baseline level of cognition and function. No reported nursing events. Hospitalist Physical - Constitutional Vitals: Temp Pulse Resp BP Pulse Ox 98.6 F 71 16 91/58 99 10/15/21 08:00 10/15/21 08:00 10/15/21 08:00 10/15/21 08:00 10/15/21 08:00 General appearance: Present: no acute distress, obese, other (Cheerful) - EENT Eyes: Present: PERRL ENT: hearing intact - Neck Neck: Present: supple - Respiratory Respiratory effort: normal Respiratory: bilateral: diminished - Cardiovascular Rhythm: regular Heart Sounds: Present: S1 & S2 - Extremities Extremities: no ischemia Peripheral Pulses: within normal limits - Abdominal General gastrointestinal: soft, non-tender, non-distended - Integumentary Integumentary: Present: clear, dry - Psychiatric Psychiatric: cooperative - Neurologic Neurologic: CNII-XII intact Results - Labs CBC & Chem 7: 10/07/21 13:40 10/07/21 13:40 Labs: Laboratory Last Values WBC 5.5 K/mm3 (4.5-11.0) 10/07/21 13:40 RBC 3.78 M/mm3 (3.65-5.03) 10/07/21 13:40 Hgb 11.5 gm/dl (10.1-14.3) 10/07/21 13:40 Hct 34.9 % (30.3-42.9) 10/07/21 13:40 MCV 92 fl (79-97) 10/07/21 13:40 MCH 31 pg (28-32) 10/07/21 13:40 MCHC 33 % (30-34) 10/07/21 13:40 RDW 13.6 % (13.2-15.2) 10/07/21 13:40 Plt Count 240 K/mm3 (140-440) 10/07/21 13:40 Lymph % (Auto) 31.4 % (13.4-35.0) 10/07/21 13:40 [place] % (Auto) 6.6 % (0.0-7.3) 10/07/21 13:40 Eos % (Auto) 2.3 % (0.0-4.3) 10/07/21 13:40 Baso % (Auto) 0.8 % (0.0-1.8) 10/07/21 13:40 Lymph # (Auto) 1.7 K/mm3 (1.2-5.4) 10/07/21 13:40 [place] # (Auto) 0.4 K/mm3 (0.0-0.8) 10/07/21 13:40 Eos # (Auto) 0.1 K/mm3 (0.0-0.4) 10/07/21 13:40 Baso # (Auto) 0.0 K/mm3 (0.0-0.1) 10/07/21 13:40 Seg Neutrophils % 58.9 % (40.0-70.0) 10/07/21 13:40 Seg Neutrophils # 3.2 K/mm3 (1.8-7.7) 10/07/21 13:40 Sodium 145 mmol/L (137-145) 10/07/21 13:40 Potassium 3.9 mmol/L (3.6-5.0) 10/07/21 13:40 Chloride 107.4 mmol/L (98-107) H 10/07/21 13:40 Carbon Dioxide 27 mmol/L (22-30) 10/07/21 13:40 Anion Gap 15 mmol/L 10/07/21 13:40 BUN 11 mg/dL (7-17) 10/07/21 13:40 Creatinine 0.9 mg/dL (0.6-1.2) 10/07/21 13:40 Estimated GFR > 60 ml/min 10/07/21 13:40 BUN/Creatinine Ratio 12 % 10/07/21 13:40 Glucose 112 mg/dL (65-100) H 10/07/21 13:40 POC Glucose 117 mg/dL (70-105) H 10/07/21 23:22 Hemoglobin A1c 5.6 % (4-6) 10/07/21 13:40 Calcium 9.0 mg/dL (8.4-10.2) 10/07/21 13:40 Total Bilirubin 0.20 mg/dL (0.1-1.2) 10/07/21 13:40 AST 14 units/L (5-40) 10/07/21 13:40 ALT 17 units/L (7-56) 10/07/21 13:40 Alkaline Phosphatase 96 units/L (35-129) 10/07/21 13:40 Total Protein 6.1 g/dL (6.3-8.2) L 10/07/21 13:40 Albumin 3.4 g/dL (3.9-5) L 10/07/21 13:40 Albumin/Globulin Ratio 1.3 % 10/07/21 13:40 Triglycerides 120 mg/dL (2-149) 10/07/21 13:40 Cholesterol 147 mg/dL (50-199) 10/07/21 13:40 LDL Cholesterol Direct 94 mg/dL (50-130) 10/07/21 13:40 HDL Cholesterol 31 mg/dL (40-59) L 10/07/21 13:40 Cholesterol/HDL Ratio 4.74 % 10/07/21 13:40 TSH 0.817 mlU/mL (0.270-4.200) 10/07/21 13:40 Coronavirus (PCR) Negative (Negative) 10/15/21 08:10 [place]/IV: Voiding Method Toilet Active Medications - Current Medications Current Medications: Generic Name Dose Route Start Last Admin Trade Name Freq PRN Reason Stop Dose Admin Aripiprazole 20 mg 10/10/21 11:00 10/15/21 09:41 Aripiprazole 10 Mg Tab PO 20 mg QDAY [facility] Administration Nystatin 1 applic 10/08/21 14:00 10/15/21 17:06 Nystatin Cream 15 Gm Tube TP 1 applic TID ROBERTO Administration Trazodone HCl 50 mg 10/08/21 22:00 10/14/21 21:14 Trazodone 50 Mg Tab PO 50 mg QHS [facility]ERT[facility] Administration
== END 2021-10-15 17:50 | disposition home or self-care (01) | DRG 885 ==
LOC: UNDOADMIN 17:09 → 3A 17:09 → 5A 21:49
PROVIDERS: ADMIT Psychiatry & Neurology Psychiatry; ATTEND Psychiatry & Neurology Psychiatry
DX: F20.9 Schizophrenia, unspecified (principal); E44.1 Mild protein-calorie malnutrition; F01.51 Vascular dementia, unspecified severity, with behavioral disturbance; Z20.822 Contact with and (suspected) exposure to COVID-19; F32.9 Major depressive disorder, single episode, unspecified; Z71.6 Tobacco abuse counseling; E66.9 Obesity, unspecified; F14.10 Cocaine abuse, uncomplicated; F17.200 Nicotine dependence, unspecified, uncomplicated; I10 Essential (primary) hypertension; E78.5 Hyperlipidemia, unspecified; I67.2 Cerebral atherosclerosis; Z68.31 Body mass index [BMI] 31.0-31.9, adult
CPT/HCPCS: 36415; 71045; 80048; 80053; 80061; 80307; 80320; 81001; 82962; 83036; 84443; 85025; 99283; G0378; G0480; U0003

== ENCOUNTER 2021-11-06 12:32 | Emergency (ER) | payer MEDICARE ==
--- NOTE | 2021-11-06 14:36 | Emergency Department Report ---
HPI - General Chief Complaint: Chest Pain Time Seen by Provider: 11/06/21 14:15 - [facility] HPI: Room 21 The patient is a 61-year-old female present with chief complaint of chest pain. Patient states for 1 week she has had intermittent throbbing pain in the left chest described as muscle pain. Patient states the pain lasts approximately 1 minute and then resolves. Patient denies shortness of breath, nausea/vomiting or diaphoresis with the pain. Patient currently denies chest pain. ED Past Medical Hx - Past Medical History Hx Psychiatric Treatment: Yes (Schizophrenia) - Surgical History Past Surgical History?: No - Family History Family history: no significant - Social History Smoking Status: Current Every Day Smoker (1/2 pack/day) Substance Use Type: None (Denies illicit drug use) - Medications Home Medications: Home Medications Medication Instructions Recorded Confirmed Last Taken Type ARIPiprazole [Abilify TAB] 20 mg PO QDAY #60 tablet 10/15/21 Unknown Rx traZODone [Desyrel] 50 mg PO QHS #30 tablet 10/15/21 Unknown Rx HYDROcodone/APAP 5-325 [[place] 1 - 2 each PO Q6HR PRN #10 tablet 11/06/21 Unknown Rx 5/325] levoFLOXacin [Levaquin TAB] 500 mg PO QDAY #10 tablet 11/06/21 Unknown Rx ED Review of Systems ROS: Stated complaint: CHEST PAIN Other details as noted in HPI Constitutional: denies: diaphoresis Eyes: denies: eye pain ENT: denies: throat pain Respiratory: denies: shortness of breath Cardiovascular: chest pain Endocrine: no symptoms reported Gastrointestinal: denies: nausea, vomiting Genitourinary: denies: dysuria Musculoskeletal: denies: back pain Neurological: denies: headache Physical Exam - Physical Exam Vital Signs: Vital Signs 11/06/21 12:32 Temperature 98.2 F Pulse Rate 101 H Respiratory 14 Rate Blood Pressure 120/46 [Left] O2 Sat by Pulse 99 Oximetry Physical Exam: GENERAL: The patient is well-developed well-nourished female lying on stretcher not appearing to be in acute distress. [] HEENT: Normocephalic. Atraumatic. Extraocular motions are intact. Patient has moist mucous membranes. NECK: Supple. Trachea midline CHEST/LUNGS: Clear to auscultation. There is no respiratory distress noted. HEART/CARDIOVASCULAR: Regular. There is no tachycardia. There is no gallop rub or murmur. ABDOMEN: Abdomen is soft, nontender. Patient has normal bowel sounds. There is no abdominal distention. SKIN: There is no rash. There is no edema. There is no diaphoresis. NEURO: The patient is awake, alert, and oriented. The patient is cooperative. The patient has no focal neurologic deficits. The patient has normal speech. GCS 15 MUSCULOSKELETAL: There is no evidence of acute injury. ED Course Vital Signs 11/06/21 12:32 Temperature 98.2 F Pulse Rate 101 H Respiratory 14 Rate Blood Pressure 120/46 [Left] O2 Sat by Pulse 99 Oximetry ED Medical Decision Making - Lab Data Result diagrams: 11/06/21 15:25 11/06/21 15:25 Laboratory Tests 11/06/21 11/06/21 11/06/21 14:07 14:40 15:25 WBC 9.4 RBC 3.90 Hgb 11.9 Hct 34.2 MCV 88 MCH 30 MCHC 35 H RDW 14.4 Plt Count 166 Lymph % (Auto) 12.0 L [place] % (Auto) 5.4 Eos % (Auto) 0.0 Baso % (Auto) 0.5 Lymph # (Auto) 1.1 L [place] # (Auto) 0.5 Eos # (Auto) 0.0 Baso # (Auto) 0.0 Seg Neutrophils % 82.1 H Seg Neutrophils # 7.7 D-Dimer Sodium Potassium Chloride Carbon Dioxide Anion Gap BUN Creatinine Estimated GFR BUN/Creatinine Ratio Glucose Calcium Total Creatine Kinase CK-MB (CK-2) CK-MB (CK-2) Rel Index Troponin T Urine Color Yellow Urine Turbidity Clear Specific Sawyer (Man) 1.015 Ur Protein (Man) 1+ Ur Ketones (Man) Negative Ur Nitrite (Man) Negative Ur Reducing Substances Not Reportable Urine Bilirubin (Man) Negative Urine Ictotest Not Reportable Leukocyte Esterase (Man) Negative Urine WBC (Auto) 2.0 Urine RBC (Auto) 2.0 U Epithel Cells (Auto) 1.0 Urine RBC (Manual) 2+ Urine Mucus Few Urine Opiates Screen Negative Urine Methadone Screen Negative Ur Barbiturates Screen Negative Ur Phencyclidine Scrn Negative Ur Amphetamines Screen Negative U Benzodiazepines Scrn Negative Urine Cocaine Screen Negative U Marijuana (THC) Screen Negative Drugs of Abuse Note Disclamer 11/06/21 11/06/21 11/06/21 15:25 15:25 15:25 WBC RBC Hgb Hct MCV MCH MCHC RDW Plt Count Lymph % (Auto) [place] % (Auto) Eos % (Auto) Baso % (Auto) Lymph # (Auto) [place] # (Auto) Eos # (Auto) Baso # (Auto) Seg Neutrophils % Seg Neutrophils # D-Dimer 1992.02 H Sodium 133 L Potassium 4.1 Chloride 95.8 L Carbon Dioxide 27 Anion Gap 14 BUN 11 Creatinine 0.9 Estimated GFR > 60 BUN/Creatinine Ratio 12 Glucose 93 Calcium 8.9 Total Creatine Kinase 250 H CK-MB (CK-2) 1.7 CK-MB (CK-2) Rel Index 0.6 Troponin T < 0.010 Urine Color Urine Turbidity Specific [place]yer (Man) Ur Protein (Man) Ur Ketones (Man) Ur Nitrite (Man) Ur Reducing Substances Urine Bilirubin (Man) Urine Ictotest Leukocyte Esterase (Man) Urine WBC (Auto) Urine RBC (Auto) U Epithel Cells (Auto) Urine RBC (Manual) Urine Mucus Urine Opiates Screen Urine Methadone Screen Ur Barbiturates Screen Ur Phencyclidine Scrn Ur Amphetamines Screen U Benzodiazepines Scrn Urine Cocaine Screen U Marijuana (THC) Screen Drugs of Abuse Note 11/06/21 19:59 WBC RBC Hgb Hct MCV MCH MCHC RDW Plt Count Lymph % (Auto) [place] % (Auto) Eos % (Auto) Baso % (Auto) Lymph # (Auto) [place] # (Auto) Eos # (Auto) Baso # (Auto) Seg Neutrophils % Seg Neutrophils # D-Dimer Sodium Potassium Chloride Carbon Dioxide Anion Gap BUN Creatinine Estimated GFR BUN/Creatinine Ratio Glucose Calcium Total Creatine Kinase CK-MB (CK-2) CK-MB (CK-2) Rel Index Troponin T < 0.010 Urine Color Urine Turbidity Specific [place]yer (Man) Ur Protein (Man) Ur Ketones (Man) Ur Nitrite (Man) Ur Reducing Substances Urine Bilirubin (Man) Urine Ictotest Leukocyte Esterase (Man) Urine WBC (Auto) Urine RBC (Auto) U Epithel Cells (Auto) Urine RBC (Manual) Urine Mucus Urine Opiates Screen Urine Methadone Screen Ur Barbiturates Screen Ur Phencyclidine Scrn Ur Amphetamines Screen U Benzodiazepines Scrn Urine Cocaine Screen U Marijuana (THC) Screen Drugs of Abuse Note - EKG Data -: EKG Interpreted by Me EKG shows normal: sinus rhythm, axis Rate: normal - EKG Data When compared to previous EKG there are: previous EKG unavailable Interpretation: other (No ischemic changes seen) - Radiology Data Radiology results: report reviewed (CT chest), image reviewed (CT chest) [facility] [address] [place] [address] Cat Scan Report Signed Patient: PELON PALACIO MR#: [id number] : 1960 Acct:[id number] Age/Sex: 61 / F ADM Date: 11/06/21 Loc: ED Attending Dr: Ordering Physician: HERNÁN BALTAZAR MD Date of Service: 11/06/21 Procedure(s): CT angio chest Accession Number(s): [id number] cc: HERNÁN BALTAZAR MD CTA CHEST WITH CONTRAST INDICATION / CLINICAL INFORMATION: Chest pain 100ml of [id number]. TECHNIQUE: Axial CT images were obtained through the chest after injection of IV contrast. 3 plane MIP and/or 3D reconstructions were produced. All CT scans at this location are performed using CT dose reduction for ALARA by means of automated exposure control. COMPARISON: None available. FINDINGS: The pulmonary arteries appear patent without definite filling defect. The left upper lung pulmonary arteries are not well seen due to opacities/infiltrates. Some artifact seen overlying pulmonary arteries bilaterally. Heart appears normal. Visualized coronary arteries are unremarkable. No abnormalities definite seen in the upper abdomen. Mild fatty infiltration of the ventral abdominal wall in the upper abdomen however nonspecific enlarged paratracheal and left hilar nodes no adenopathy. Left paratracheal node measures 1.9 x 1.6 cm. Dense opacities are seen extending from left hilum into the left upper lung pelvis and left hilum. There is a right lower lung pulmonary nodule measuring 5-6 mm. IMPRESSION: 1. No CT evidence for pulmonary embolism. 2. Dense opacity extending from left hilum into the left upper lung. Findings could represent infiltrate/pneumonia. A few air bronchograms are seen. 3. Extensive mediastinal paratracheal and left hilar adenopathy. Fullness of the left hilum is identified. Findings could be secondary to infectious etiology however underlying adenopathy in the left hilum/mass cannot be excluded. A follow-up after treatment is recommended. 4. Pulmonary nodules in the right lower lung measuring 5-6 mm Signer Name: Zafar Pryor MD Signed: 11/06/2021 6:42 PM Workstation Name: [id number] Transcribed By: IVA Dictated By: ARASH PRYOR MD Electronically Authenticated By: ARASH PRYOR MD Signed Date/Time: 11/06/211841 DD/ 35 TD/TT: - Differential Diagnosis ACS, PE, costochondritis, GERD, anxiety Critical care attestation.: If time is entered above; I have spent that time in minutes in the direct care of this critically ill patient, excluding procedure time. ED Disposition Clinical Impression: Atypical chest pain, Pneumonia Disposition: 01 HOME / SELF CARE / HOMELESS Is pt being admited?: No Does the pt Need Aspirin: No Condition: Stable Instructions: Nonspecific Chest Pain, Adult, Bacterial Pneumonia (ED), Community-Acquired Pneumonia, Adult Additional Instructions: Return to the emergency department should you develop worsening symptoms, inability to tolerate food or liquids, high fever or any other concerns Prescriptions: levoFLOXacin [Levaquin TAB] 500 mg PO QDAY #10 tablet HYDROcodone/APAP 5-325 [[place] 5/325] 1 - 2 each PO Q6HR PRN #10 tablet PRN Reason: Pain Referrals: SURESH HERNANDEZ MD [Primary Care Provider] - 3-5 Days Time of Disposition: 20:43
[2021-11-06 15:08] LABS: Amphetamine Screen,Urine Negative; Benzodiazepines Screen,Urine Negative; Cannabinoid Screen,Urine Negative; Cocaine Screen,Urine Negative; Methadone Screen,Urine Negative; Opiate Screen,Urine Negative
[2021-11-06 15:11] LABS: Mucus,Urine FEW /HPF
[2021-11-06 15:38] LABS: Color,Urine Yellow (Yellow)
[2021-11-06 16:01] LABS: Basophils % (Auto) 0.5 % (0.0-1.8); Hematocrit 34.2 % (30.3-42.9); Hemoglobin 11.9 gm/dl (10.1-14.3); Lymphocytes # (Auto) 1.1 K/mm3 (1.2-5.4); Mean Corpuscular HGB Conc 35 % (30-34); Mean Corpuscular Volume 88 fl (79-97); Monocytes # (Auto) 0.5 K/mm3 (0.0-0.8); Monocytes % (Auto) 5.4 % (0.0-7.3); Platelet Count 166 K/mm3 (140-440); Red Cell Distribution Width 14.4 % (13.2-15.2)
[2021-11-06 16:19] LABS: BUN/Creatinine Ratio 12; Blood Urea Nitrogen 11 mg/dL (7-17); Calcium 8.9 mg/dL (8.4-10.2); Hemolysis Index 18
[2021-11-06 16:21] LABS: Creatine Kinase MB 1.7 ng/mL (0.0-4.0)
--- NOTE | 2021-11-06 18:46 | Cat Scan Report ---
CTA CHEST WITH CONTRAST INDICATION / CLINICAL INFORMATION: Chest pain 100ml of [id number]. TECHNIQUE: Axial CT images were obtained through the chest after injection of IV contrast. 3 plane NC P and/or 3D reconstructions were produced. All CT scans at this location are performed using CT dose reduction for ALARA by means of automated exposure control. COMPARISON: None available. FINDINGS: The pulmonary arteries appear patent without definite filling defect. The left upper lung pulmonary a rteries are not well seen due to opacities/infiltrates. Some artifact seen overlying pulmonary arteri es bilaterally. Heart appears normal. Visualized coronary arteries are unremarkable. No abnormalities definite seen in the upper abdomen. Mild fatty infiltration of the ventral abdominal wall in the upp er abdomen however nonspecific enlarged paratracheal and left hilar nodes no adenopathy. Left paratra cheal node measures 1.9 x 1.6 cm. Dense opacities are seen extending from left hilum into the left up per lung pelvis and left hilum. There is a right lower lung pulmonary nodule measuring 5-6 mm. IMPRESSION: 1. No CT evidence for pulmonary embolism. 2. Dense opacity extending from left hilum into the left upper lung. Findings could represent infiltr ate/pneumonia. A few air bronchograms are seen. 3. Extensive mediastinal paratracheal and left hilar adenopathy. Fullness of the left hilum is identi fied. Findings could be secondary to infectious etiology however underlying adenopathy in the left hi lum/mass cannot be excluded. A follow-up after treatment is recommended. 4. Pulmonary nodules in the right lower lung measuring 5-6 mm Signer Name: Zafar Pryor MD Signed: 11/06/2021 6:42 PM Workstation Name: [id number]
[2021-11-06] MEDS ORDERED: levoFLOXacin 500 MG TAB PO ONE (19:08)
[2021-11-06 22:05] VITALS: BP 134/72
== END 2021-11-06 21:30 | disposition home or self-care (01) ==
LOC: ED 12:32
DX: J18.9 Pneumonia, unspecified organism (principal); R07.89 Other chest pain; F20.9 Schizophrenia, unspecified; F17.210 Nicotine dependence, cigarettes, uncomplicated; Z79.899 Other long term (current) drug therapy
CPT/HCPCS: 36415; 71275; 80048; 80307; 81001; 82550; 82553; 84484; 85025; 85379; 93005; 99284; Q9967